=== PATIENT | male | born 2000 | race Two or more races ===

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

== ENCOUNTER 2018-04-30 09:26 | Inpatient (IN) | payer OTHER ==
[2018-04-30 10:12] LABS: HEMATOCRIT 43.6 % (42.0-52.0); HEMOGLOBIN 15.1 g/dl (13.5-17.5); MEAN CORPUSCULAR HEMOGLOBIN 29.7 pg (27.0-33.0); MEAN CORPUSCULAR HGB CONC 34.6 g/dl (32.0-36.5); MEAN CORPUSCULAR VOLUME 85.7 fl (80.0-96.0); PLATELET COUNT, AUTOMATED 275 10^3/uL (150-450); RED BLOOD COUNT 5.09 10^6/uL (4.30-6.10); RED CELL DISTRIBUTION WIDTH 12.5 % (11.5-14.5); WHITE BLOOD COUNT 7.8 10^3/uL (4.0-10.0)
[2018-04-30 10:46] LABS: ALBUMIN 4.5 GM/DL (3.2-5.2); ALBUMIN/GLOBULIN RATIO 1.41 (1.00-1.93); ALKALINE PHOSPHATASE 96 U/L (45-117); ALT/SGPT 42 U/L (12-78); ANION GAP 9 MEQ/L (8-16); AST/SGOT 23 U/L (7-37); BILIRUBIN,DIRECT 0.2 MG/DL (0.0-0.2); BILIRUBIN,TOTAL 0.8 MG/DL (0.2-1.0); BLOOD UREA NITROGEN 10 MG/DL (7-18); CALCIUM LEVEL 9.6 MG/DL (8.5-10.1); CARBON DIOXIDE LEVEL 26 MEQ/L (21-32); CHLORIDE LEVEL 109 MEQ/L (98-107); CREATININE FOR GFR 1.16 MG/DL (0.70-1.30); ETHYL ALCOHOL (ETHANOL) 0.003 % (0.000-0.010); GLUCOSE, FASTING 88 MG/DL (70-100); POTASSIUM SERUM 4.1 MEQ/L (3.5-5.1); SALICYLATE LEVEL < 1.7 MG/DL (5.0-30.0); SODIUM LEVEL 144 MEQ/L (136-145); THYROID STIMULATING HORMONE 0.643 uIU/ML (0.463-3.98); TOTAL PROTEIN 7.7 GM/DL (6.4-8.2)
[2018-04-30 10:47] LABS: ACETAMINOPHEN LEVEL < 2.0 UG/ML (10.0-30.0)
[2018-04-30 10:50] LABS: AMPHETAMINES LEVEL URINE POSITIVE (NEGATIVE); BARBITURATES URINE NEGATIVE (NEGATIVE); BENZODIAZEPINES URINE NEGATIVE (NEGATIVE); CANNABINOIDS URINE NEGATIVE (NEGATIVE); COCAINE METABOLITE URINE NEGATIVE (NEGATIVE); METHADONE URINE NEGATIVE (NEGATIVE); OPIATES URINE NEGATIVE (NEGATIVE); PHENCYCLIDINE URINE NEGATIVE (NEGATIVE)
[2018-04-30] MEDS ORDERED: MOM 30ML SUSPENSION UDC PO (15:00)
[2018-04-30] MEDS ORDERED: MAALOX 30 ML SUSP *UDC PO (15:00)
[2018-05-01] MEDS: ACETAMINOPHEN TAB 650MG DOSE (2X325MG) PO (08:31)
[2018-05-01] MEDS: SERTRALINE HCL 50 MG TAB PO (14:58)
[2018-05-01] MEDS: guanFACINE 1 MG TAB PO (21:02)
[2018-05-02] MEDS: SERTRALINE HCL 50 MG TAB PO (08:00)
[2018-05-02] MEDS: traZODone 50 MG TAB PO (20:59)
[2018-05-02] MEDS: guanFACINE 1 MG TAB PO (20:59)
[2018-05-03] MEDS: SERTRALINE HCL 50 MG TAB PO (08:12)
== END 2018-05-03 14:00 | disposition home or self-care (01) | DRG 881 ==
LOC: M ED 09:26 → M PSY 14:47
DX: F32.9 Major depressive disorder, single episode, unspecified (principal); F90.9 Attention-deficit hyperactivity disorder, unspecified type; F84.5 Asperger's syndrome; Z81.1 Family history of alcohol abuse and dependence; Z81.8 Family history of other mental and behavioral disorders; Z79.899 Other long term (current) drug therapy; Z88.0 Allergy status to penicillin

== ENCOUNTER → 2018-07-15 | Outpatient (CLI) | payer OTHER ==
[2018-07-15 19:42] LABS: CHLAMYDIA DNA AMPLIFICATION NEGATIVE (NEGATIVE); GC DNA AMPLIFICATION NEGATIVE (NEGATIVE)
[2018-07-17 08:11] LABS: HEPATITIS B SURFACE ANTIGEN NEGATIVE (NEGATIVE); HIV 1&2 SCREEN CENTAUR NEGATIVE (NEGATIVE)
[2018-07-17 08:11] LABS: HEPATITIS C VIRUS ABY INDEX 0.1 INDEX (<0.8)
== END ==
LOC: M WUC 11:39
DX: Z72.51 High risk heterosexual behavior (principal)
CPT/HCPCS: 87340

== ENCOUNTER → 2018-08-05 | Outpatient (REF) | payer OTHER | LOC: M LAB REF 09:08 | DX: Z30.2 Encounter for sterilization (principal) ==

== ENCOUNTER 2018-11-01 11:00 | Inpatient (IN) | payer OTHER, MEDICAID ==
[~2018-11-01] VITALS: Ht 177.8 cm; Wt 75.1 kg
[~2018-11-01 11:00] MED LIST: BENZ-52 PO; GUAN1TA PO; LATU1TAB PO; OXCA300T14 PO; REXU1TAB4 PO; SERT50TA PO; TRAZO50TA PO; VITMTA PO; VYVA30CA4 PO
[2018-11-01] MEDS ORDERED: HYDR-3363 PO (11:21)
[2018-11-01] MEDS ORDERED: QUET5TAB PO (11:21)
[2018-11-01 11:51] LABS: HEMATOCRIT 47.2 % (42.0-52.0); HEMOGLOBIN 16.3 g/dl (13.5-17.5); MEAN CORPUSCULAR HEMOGLOBIN 29.7 pg (27.0-33.0); MEAN CORPUSCULAR HGB CONC 34.5 g/dl (32.0-36.5); PLATELET COUNT, AUTOMATED 237 10^3/uL (150-450); RED BLOOD COUNT 5.49 10^6/uL (4.30-6.10); WHITE BLOOD COUNT 6.1 10^3/uL (4.0-10.0)
[2018-11-01 12:52] LABS: ACETAMINOPHEN LEVEL < 2.0 UG/ML (10.0-30.0); ALBUMIN 4.7 GM/DL (3.2-5.2); ALT/SGPT 35 U/L (12-78); BILIRUBIN,DIRECT 0.3 MG/DL (0.0-0.2); BILIRUBIN,TOTAL 1.1 MG/DL (0.2-1.0); BLOOD UREA NITROGEN 18 MG/DL (7-18); CALCIUM LEVEL 9.1 MG/DL (8.5-10.1); CARBON DIOXIDE LEVEL 26 MEQ/L (21-32); CHLORIDE LEVEL 107 MEQ/L (98-107); CREATININE FOR GFR 1.01 MG/DL (0.70-1.30); ETHYL ALCOHOL (ETHANOL) < 0.003 % (0.000-0.010); GLUCOSE, FASTING 72 MG/DL (70-100); POTASSIUM SERUM 3.9 MEQ/L (3.5-5.1); SALICYLATE LEVEL < 1.7 MG/DL (5.0-30.0); SODIUM LEVEL 141 MEQ/L (136-145)
[2018-11-01 14:01] LABS: AMPHETAMINES LEVEL URINE NEGATIVE (NEGATIVE); BARBITURATES URINE NEGATIVE (NEGATIVE); BENZODIAZEPINES URINE NEGATIVE (NEGATIVE); CANNABINOIDS URINE NEGATIVE (NEGATIVE); COCAINE METABOLITE URINE NEGATIVE (NEGATIVE); METHADONE URINE NEGATIVE (NEGATIVE); OPIATES URINE NEGATIVE (NEGATIVE); PHENCYCLIDINE URINE NEGATIVE (NEGATIVE)
[2018-11-01] MEDS ORDERED: ACETAMINOPHEN TAB 650MG DOSE (2X325MG) PO PRN (15:15)
[2018-11-01] MEDS ORDERED: MOM 30ML SUSPENSION UDC PO PRN (15:15)
[2018-11-01] MEDS ORDERED: MAALOX 30 ML SUSP *UDC PO PRN (15:15)
[2018-11-01] MEDS ORDERED: LORazepam 1 MG TAB PO ONE (16:00)
[2018-11-01] MEDS ORDERED: LORazepam 2 MG/ML VIAL (J2060) As Ordered ONE (16:04)
[2018-11-01] MEDS ORDERED: HALOPERIDOL 5 MG/ML VIAL (J1630) As Ordered ONE (16:04)
[2018-11-01] MEDS ORDERED: HALOPERIDOL 5 MG/ML VIAL (J1630) IM ONE (16:15)
[2018-11-01] MEDS ORDERED: LORazepam 2 MG/ML VIAL (J2060) IM ONE (16:15)
[2018-11-01] MEDS ORDERED: ZOLO50TA PO (16:49)
[2018-11-01] MEDS ORDERED: TRAZ-160 PO (16:49)
[2018-11-01 18:55] VITALS: BP 135/84
[2018-11-02 06:19] VITALS: BP 138/92
[2018-11-02] MEDS ORDERED: BENZTROPINE 2 MG TAB PO ONE (08:00)
[2018-11-02] MEDS: BENZTROPINE 1 MG TAB PO SCH ×2 (09:00→21:20)
[2018-11-02] MEDS: LORazepam 2 MG TAB PO PRN (09:22)
[2018-11-02] MEDS: hydrOXYzine 25 MG TAB PO PRN ×2 (09:22→19:03)
[2018-11-02 18:40] VITALS: BP 131/83
[2018-11-02] MEDS ORDERED: QUEtiapine FUMARATE 100 MG TAB PO SCH (21:00)
[2018-11-03 06:16] VITALS: BP 139/89
[2018-11-03] MEDS: BENZTROPINE 1 MG TAB PO SCH ×2 (08:18→20:07)
[2018-11-03] MEDS: SALIVA SUBSTITUTE(MOUTHKOTE) BTL MT PRN ×2 (15:19→17:04)
[2018-11-03] MEDS: hydrOXYzine 25 MG TAB PO PRN ×2 (15:19→23:54)
[2018-11-03 18:00] VITALS: BP 139/85
[2018-11-03] MEDS: LORazepam 2 MG TAB PO PRN (20:07)
[2018-11-03] MEDS ORDERED: QUEtiapine FUMARATE 50 MG TAB PO SCH (21:00)
[2018-11-03] MEDS: traZODone 50 MG TAB PO PRN (23:54)
[2018-11-04] MEDS: SALIVA SUBSTITUTE(MOUTHKOTE) BTL MT PRN (04:05)
[2018-11-04] MEDS: LORazepam 2 MG TAB PO PRN (06:05)
[2018-11-04 06:24] VITALS: BP 138/98
--- NOTE | 2018-11-04 08:20 | HPE ---
DATE OF ADMISSION: 11/01/2018 HISTORY OF PRESENT ILLNESS: Please refer to the psychiatric history and evaluation for further details on this admission. This examination and history is intended for medical issues which may need treatment, followup or consultation on this 18-year-old male. PRIMARY CARE PROVIDER: Dr. Demetris Alcantara. ALLERGIES: PENICILLIN. SOCIAL HISTORY: He is single. ETOH - He has not drank since June of 2018. He does not smoke. He does not use recreational drugs. PAST MEDICAL HISTORY: Attention deficit hyperactivity disorder. PAST SURGICAL HISTORY: Vasectomy, May of 2018. HOME MEDICATIONS: - hydroxyzine 50 mg two tablets by mouth daily - Seroquel 50 mg two by mouth nightly - sertraline 50 mg by mouth nightly - trazodone 50 mg by mouth nightly as needed insomnia LABORATORY STUDIES: CBC was normal. Electrolytes were normal. BUN was 18, creatinine 1.01. Total bilirubin 1.1. Direct bilirubin normal at 0.3., TSH 0.59. Urine for toxicology was negative. FAMILY HISTORY: Noncontributory. REVIEW OF SYSTEMS: 10-systems review was done and was unremarkable. Patient had no complaints. PHYSICAL EXAMINATION: 18-year-old cooperative male in no distress. Height 70 inches, weight 75.8 kg, body mass index (BMI) 24.3. The patient is alert and oriented times three. Pupils equal and reactive to light. Extraocular movements intact. Cornea and sclera clear. Conjunctiva normal. No facial asymmetry. Pharynx, tongue, and gums pink and moist. Tongue is midline. Neck is supple, without lymphadenopathy. No thyromegaly. No goiter. Carotids 2+ without bruit. Chest clear to auscultation, without wheeze or retraction. Heart is regular. Abdomen benign. Bowel sounds positive. /Rectal: Not done. Extremities show equal strength. Full range of motion. no cyanosis, clubbing or edema. Peripheral pulses equal and palpable bilaterally. Skin is warm and dry. IMPRESSION AND PLAN: 1. Psychiatric: Plan per psychiatry. 2. No acute medical issues.
[2018-11-04] MEDS: BENZTROPINE 1 MG TAB PO SCH ×2 (09:38→20:13)
--- NOTE | 2018-11-04 09:58 | MHIPN ---
DATE OF SERVICE: 11/03/2018 The patient today is doing a lot better than yesterday. I did decide to place the patient on one-to-one observation level because I felt that the patient's impulsive type history and made a suicidal gesture in the past of attempting to hang himself and he was so psychotic and manic. Today he states that he did sleep better last night, although not to baseline. He says that his thinking has slowed down also. He is not screaming like he was yesterday. He is denying any hallucinations and it is not clear if he is just downplaying his symptoms or not. I asked him about having told his father that his grandfather was talking to him and he tells me today that it was more own thinking. He is denying any suicidal thoughts or any homicidal thoughts today either. MENTAL STATUS EXAMINATION: The patient is alert and oriented times three. Eye contact is fair. Psychomotor activity is increased, he tends to be pacing a little bit in the room, but not as bad as yesterday. As I said, he is not yelling. He is verbally spontaneous. There is no formal thought disorder noted. He admits that his mood is depressed. His affect is appropriate to his mood. He is not suicidal or homicidal, not clear whether his delusions or hallucinations have resolved or whether as he said it was more his own thinking. Concentration is fair. Memory is grossly intact. Insight and judgment is poor. DIAGNOSIS: Bipolar disorder, type 1, manic with psychotic symptoms. Autism spectrum disorder. TREATMENT PLAN: We will continue to monitor the patient for manic like symptoms and psychotic symptoms and his depression. We will further increase the Seroquel to 150 mg at bedtime. The patient did sleep better last night but he woke up in the middle of the night and he requested more medicine and was given some Ativan and trazodone at that point. We will continue to titrate his medication as indicated. Also, I did start him on Cogentin and he is complaining of some dry mouth. This is because he had tongue swelling secondary to dystonic reaction due to the Haldol he was given in the emergency room. He probably may not need that Cogentin after a few days as he has not required any further Haldol. MTDD
--- NOTE | 2018-11-04 10:13 | MHHPE ---
DATE OF ADMISSION: 11/01/2018 DATE OF EVALUATION: 11/02/2018 HISTORY OF PRESENT ILLNESS: This is a 18-year-old white male who was brought to the emergency room by his father at the suggestion of the patient's therapist Lalit Saldivar from [facility]. Apparently the patient had been exhibiting manic like symptoms and had stated having thoughts of pushing someone would kill him and complained of lack of sleep and of hallucinations. The patient admitted he had been feeling depressed and anxious and having difficulty thinking clearly when he was in the emergency room. He stated that he had not been sleeping well for a few days. I asked if he was suicidal and wanting to harm himself and he stated that he wished someone would do it for him. He did not answer when he was asked if he had thoughts of harming others but the dad stated the patient, "only if I am provoked". The patient apparently had been staying at his mothers house for a few days. He was taking trazodone and it seemed that this was having an opposite effect. The patient's father stated that he had been yelling in his room for hours and saying that his grandfather who was was telling him what medications to take or not to take, what he should do. The patient apparently had been prescribed Seroquel 50 mg and Hydroxyzine by [facility]. It seemed that after he took the medications the day before he had been able to sleep somewhat. The dad stated that the night before the patient was in the bathroom cutting his hair and attempting to color it with honey and charcoal toothpaste. While in the emergency room the patient became very agitated and he had to be given medication and restraint. The patient today had been pretty agitated with disorganized thoughts. At times he was yelling at staff. He then complained of having some swelling of the tongue and he was given Cogentin 2 mg and this appeared that he had been given some Haldol in the emergency room and this was probably a reaction from the Haldol. He was also given some Ativan as needed and the patient finally feel asleep and at that point was when I went to see the patient. I did not feel that it was appropriate to awaken the patient at that point because he had been so agitated and had just fallen asleep. Therefore most of the information is from the chart. PAST PSYCHIATRIC HISTORY: I did review records from his past psychiatric hospitalization at [facility] on 04/30/2018 to 05/03/2018, at that time he apparently had intentions of hanging himself with one his ties attached to his bed. Again he was brought by the father who found him trying to hang himself. He admitted to feeling depressed and being suicidal. He seemed to be very focused on the fact that he wanted to have a relationship with a woman. The patient was not felt to be having any paranoid thinking or any psychotic thoughts. He was given the diagnosis of unspecified depression and autism spectrum disorder (Asperger's Syndrome) and he was discharged on Zoloft 50 mg daily, guanfacine 1 mg at bedtime and trazodone 50 mg at bedtime as needed for insomnia. At the time of that admission though the patient apparently was being treated with Latuda and according to that record it stated that the patient has been treated with multiple other medications including Vyvanse, Rexulti, Cogentin, Topamax and Latuda. This patient has a history of being diagnosed with autism spectrum disorders (Asperger's Syndrome). The patient at this hospitalization was age the age of 15. I was able to review a consult that was done by Dr. Willams while the patient was in the emergency room prior to be transferred to psychiatric unit. Consult was done on 12/18/2015. The patient indicated that he had been having a lot of trouble with depression and feeling hopeless and was having suicidal thoughts. The patient also admitted that he had been hearing voices and described them as "male and female" and that they were voices with whom he is familiar including teachers. The voices comment and sometimes converse with each other or give him advice. The patient stated that sometimes the voices would tell him to hurt himself. He also said he was having thoughts that the voices were talking negatively about him. Before he had that hospitalization at [facility] and he had another hospitalization at [facility] in April 2018 as noted above and this would be his 3rd admission. MEDICAL HISTORY: There are no acute medical problems with the patient according to chart. FAMILY HISTORY: There is a paternal grandmother who is schizophrenic, a maternal aunt that was bipolar, mom had a history of depression. There are no suicides in the family. SUBSTANCE ABUSE HISTORY: According to records,the patient does not have any problems with alcohol or drugs. Just to clarify orders information is obtained from the chart. REVIEW OF SYSTEMS: VITAL SIGNS: Blood pressure 138/92, pulse 116, respirations 18. APPEARANCE: The patient gets quite agitated but has fallen asleep where he as needed Ativan. MUSCULAR SYSTEM: Unable to observe his gait or check for any involuntary movements. I am unable to check other systems with this patient. MENTAL STATUS EXAMINATION: Not able to do the mental status exam since the patient fell asleep after given as needed Ativan due to agitation. DIAGNOSIS: Other specified bipolar disorder and autism spectrum disorder. Rule out Bipolar disorder, type I, manic with possible psychotic symptoms. TREATMENT PLAN: At this point I decided to place him on 1 to 1 observation level since patient does have a history of impulsive behavior where he tried to hang himself. Apparently he appears to be manic and psychotic and expressed suicidal ideations upon admission. I felt that it was safer to put him on 1 to 1 observation level for suicidal risk. I will continue the Seroquel he was just started on. I am going to increase it from 50 to 100 mg at bedtime. The patient appears to have a reaction to the Haldol as needed that he was given in the emergency room in addition to 2 mg that he was given. I will put him on Cogentin 1 mg. He will continue to adjust medications as indicated and continue 1 to 1 at this point. MTDD
--- NOTE | 2018-11-04 11:27 | MHIPNPDOC ---
[facility] Progress Note Progress Note DATE OF SERVICE: 11/04/18 HISTORY: Per Dr. Willis admit note: This is a 18-year-old white male who was brought to the emergency room by his father at the suggestion of the patient's therapist Lalit Saldivar from [facility]. Apparently the patient had been exhibiting manic like symptoms and had stated having thoughts of pushing someone would kill him and complained of lack of sleep and of hallucinations. The patient admitted he had been feeling depressed and anxious and having difficulty thinking clearly when he was in the emergency room. He stated that he had not been sleeping well for a few days. I asked if he was suicidal and wanting to harm himself and he stated that he wished someone would do it for him. He did not answer when he was asked if he had thoughts of harming others but the dad stated the patient, "only if I am provoked". The patient apparently had been staying at his mothers house for a few days. He was taking trazodone and it seemed that this was having an opposite effect. The patient's father stated that he had been yelling in his room for hours and saying that his grandfather who was was telling him what medications to take or not to take, what he should do. The patient apparently had been prescribed Seroquel 50 mg and Hydroxyzine by [facility]. It seemed that after he took the medications the day before he had been able to sleep somewhat. The dad stated that the night before the patient was in the bathroom cutting his hair and attempting to color it with honey and charcoal toothpaste. While in the emergency room the patient became very agitated and he had to be given medication and restraint. The patient today had been pretty agitated with disorganized thoughts. At times he was yelling at staff. He then complained of having some swelling of the tongue and he was given Cogentin 2 mg and this appeared that he had been given some Haldol in the emergency room and this was probably a reaction from the Haldol. He was also given some Ativan as needed and the patient finally feel asleep and at that point was when I went to see the patient. I did not feel that it was appropriate to awaken the patient at that point because he had been so agitated and had just fallen asleep. Therefore most of the information is from the chart. VITAL SIGNS: See below. NEW TEST RESULTS: See below. CURRENT MEDICATIONS: See below. MENTAL STATUS EXAMINATION: The patient is alert and oriented times three. Eye contact is fair. Activity is increased, but able to sit during interview although slightly r estless/anxious. He is verbally spontaneous but hyperverbal and tangential (speaking non-stop about TLS, living with his roommate, and a mark in a upstairs appt that he asked to quiet down b/c his mother couldn't sleep prior admission). There is no formal thought disorder noted. He admits that his mood is "manic and down at the same time". His affect is mixed hypomanic and anxio us. He is not suicidal or homicidal, not clear whether his delusions or hallucinations have resolved or whether as he said it was more his own thinking. Concentration is poor. Memory is grossly intact. Insight and judgment is poor. DIAGNOSES: Bipolar disorder, type 1, manic with psychotic symptoms. Autism spectrum disorder. ASSESSMENT:Pt seen with staff and continues to be hypomanic, anxious, tangential, with rapid/pressured speech, unclear whether he is responding to in ternal stimuli or experiencing psychosis/delusional thought disorder due to his current status. Pt not sleeping at night and restless. Is more redirectable and appears able to come off 1:1 sitting. States he feels "manic and down at the same time" and that "my serotonin levels are too high." Denies SI/HI. Agreeable to depakote for mood stabilization. MANAGEMENT PLAN: add zyprexa 10mg q4hr prn bj/agitation and depakote er 500mg bid Cogentin 1 mg BID Atarax 25 mg Q4HP PRN PO ANXIETY/AGITATION Ativan 2 mg Q4HP PRN PO ANXIETY/AGITATION SEROquel 200 mg QHS Trazodone 50 mg QHSP PRN PO INSOMNIA depakote er 500mg bid zyprexa 10mg q4hr prn bj/agitation TIME SPENT:30 minutes. Vital Signs Vital Signs Date Time Temp Pulse Resp B/P (MAP) Pulse Ox O2 Delivery O2 Flow Rate FiO2 11/04/18 06:24 98.5 119 20 138/98 (111) 11/01/18 18:36 98 11/01/18 16:45 Room Air Current Medications Current Medications Acetaminophen (Tylenol Tab) 650 mg Q6HP PRN PO HEADACHE or DISCOMFORT; Start 11/01/18 at 15:15 Al Hydrox/Mg Hydrox/Simethicone (Mylanta) 30 ml Q4HP PRN PO HEARTBURN/INDIGESTION; Start 11/01/18 at 15:15 Benztropine Mesylate (Cogentin) 1 mg BID PO Last administered on 11/04/18at 09:38; Start 11/02/18 at 09:00 Home Med (Med Rec Complete!) ASDIRECTED XX ; Start 11/01/18 at 17:00; Stop 11/01/18 at 17:00; Status DC Hydroxyzine HCl (Atarax) 25 mg Q4HP PRN PO ANXIETY/AGITATION Last administered on 11/03/18at 23:54; Start 11/02/18 at 07:45 Lorazepam (Ativan) 2 mg Q4HP PRN PO ANXIETY/AGITATION Last administered on 11/04/18at 06:05; Start 11/02/18 at 07:45 Magnesium Hydroxide (Milk Of Magnesia) 30 ml DAILYPRN PRN PO CONSTIPATION; Start 11/01/18 at 15:15 Quetiapine Fumarate (SEROquel) 100 mg QHS PO Last administered on 11/02/18at 21:20; Start 11/02/18 at 21:00; Stop 11/03/18 at 11:47; Status DC Quetiapine Fumarate (SEROquel) 150 mg QHS PO Last administered on 11/03/18at 20:07; Start 11/03/18 at 21:00 Saliva Substitute (Mouthkote) SPRAY NEEDED Q1HP PRN MT ORAL PAIN/DISCOMFORT Last administered on 11/04/18at 04:05; Start 11/03/18 at 12:00 Trazodone HCl (Desyrel) 50 mg QHSP PRN PO INSOMNIA Last administered on 11/03/18 23:54; Start 11/01/18 at 15:15 Allergies Coded Allergies: Penicillins (Verified Allergy, Unknown, 04/30/18) HINA GARCIA DO Nov 04, 2018 11:27 am
[2018-11-04] MEDS ORDERED: OLANZapine ORAL DISINTEGRATING TAB 5MG PO PRN (11:30)
[2018-11-04] MEDS ORDERED: DIVALPROEX 500MG *ER* TAB PO ONE (11:30)
[2018-11-04 18:00] VITALS: BP 143/85
[2018-11-04] MEDS: DIVALPROEX 500MG *ER* TAB PO SCH (20:14)
[2018-11-04] MEDS: QUEtiapine FUMARATE 200 MG TAB PO SCH (20:14)
[2018-11-05 06:47] VITALS: BP 143/87
[2018-11-05] MEDS: DIVALPROEX 500MG *ER* TAB PO SCH ×2 (09:37→20:52)
[2018-11-05] MEDS: BENZTROPINE 1 MG TAB PO SCH ×2 (09:37→20:52)
--- NOTE | 2018-11-05 09:38 | MHIPNPDOC ---
[facility] Progress Note Progress Note DATE OF SERVICE: 11/05/18 HISTORY: Per Dr. Willis admit note: This is a 18-year-old white male who was brought to the emergency room by his father at the suggestion of the patient's therapist Lalit Saldivar from [facility]. Apparently the patient had been exhibiting manic like symptoms and had stated having thoughts of pushing someone would kill him and complained of lack of sleep and of hallucinations. The patient admitted he had been feeling depressed and anxious and having difficulty thinking clearly when he was in the emergency room. He stated that he had not been sleeping well for a few days. I asked if he was suicidal and wanting to harm himself and he stated that he wished someone would do it for him. He did not answer when he was asked if he had thoughts of harming others but the dad stated the patient, "only if I am provoked". The patient apparently had been staying at his mothers house for a few days. He was taking trazodone and it seemed that this was having an opposite effect. The patient's father stated that he had been yelling in his room for hours and saying that his grandfather who was was telling him what medications to take or not to take, what he should do. The patient apparently had been prescribed Seroquel 50 mg and Hydroxyzine by [facility]. It seemed that after he took the medications the day before he had been able to sleep somewhat. The dad stated that the night before the patient was in the bathroom cutting his hair and attempting to color it with honey and charcoal toothpaste. While in the emergency room the patient became very agitated and he had to be given medication and restraint. The patient today had been pretty agitated with disorganized thoughts. At times he was yelling at staff. He then complained of having some swelling of the tongue and he was given Cogentin 2 mg and this appeared that he had been given some Haldol in the emergency room and this was probably a reaction from the Haldol. He was also given some Ativan as needed and the patient finally feel asleep and at that point was when I went to see the patient. I did not feel that it was appropriate to awaken the patient at that point because he had been so agitated and had just fallen asleep. Therefore most of the information is from the chart. VITAL SIGNS: See below. NEW TEST RESULTS: See below. CURRENT MEDICATIONS: See below. MENTAL STATUS EXAMINATION: The patient is alert and oriented times three. Eye contact is intermittent, Activity is less increased, but able to sit during interview although slightly restless/anxious. He is verbally spontaneous but hyperverbal although less and tangential at times. States his "subconscious is speaking to me and saying things that I can't understand." Mumbling to himself responding to internal stimuli in my office when he stops talk out loud. Endorses confusion over people's faces thinking he recognizes them from an actor on TV but not quite sure if it's the actor. He admits that his mood is "better". His affect is mixed hypomanic and anxious. He is not suicidal or homicidal. Concentration is poor. Memory is grossly intact. Insight and judgment is poor. DIAGNOSES: Bipolar disorder, type 1, manic with psychotic symptoms. Autism spectrum disorder. ASSESSMENT:Pt seen and continues to be hypomanic, anxious, tangential, with rapid/pressured speech, responding to internal stimuli, endorsing AH as his "subconscious," per staff talking to a closest this am, and appears to be experiencing psychosis/delusional thought disorder due to his current status. Pt is sleeping at night and with start of current meds and depakote for mood stabilization. Is more redirectable although very interruptive when someone is talking to him and continues to be hyperverbal. Delusional belief that his symptoms are caused by too much "artificial sugar". States he feels "better." Denies SI/HI. MANAGEMENT PLAN: add zyprexa 10mg q4hr prn bj/agitation and depakote er 500mg bid. add invega 3mg bid for psychosis Cogentin 1 mg BID invega 3mg bid for psychosis Atarax 25 mg Q4HP PRN PO ANXIETY/AGITATION Ativan 2 mg Q4HP PRN PO ANXIETY/AGITATION SEROquel 200 mg QHS Trazodone 50 mg QHSP PRN PO INSOMNIA depakote er 500mg bid zyprexa 10mg q4hr prn bj/agitation TIME SPENT:30 minutes. Vital Signs Vital Signs Date Time Temp Pulse Resp B/P (MAP) Pulse Ox O2 Delivery O2 Flow Rate FiO2 11/05/18 06:47 99.1 104 16 143/87 (105) 11/01/18 18:36 98 11/01/18 16:45 Room Air Current Medications Current Medications Acetaminophen (Tylenol Tab) 650 mg Q6HP PRN PO HEADACHE or DISCOMFORT Last administered on 11/05/18at 01:37; Start 11/01/18 at 15:15 Al Hydrox/Mg Hydrox/Simethicone (Mylanta) 30 ml Q4HP PRN PO HEARTBURN/INDIGESTION; Start 11/01/18 at 15:15 Benztropine Mesylate (Cogentin) 1 mg BID PO Last administered on 11/04/18at 20:13; Start 11/02/18 at 09:00 Divalproex Sodium (Depakote Er) 500 mg BID PO ; Start 11/04/18 at 21:00 Home Med (Med Rec Complete!) ASDIRECTED XX ; Start 11/01/18 at 17:00; Stop 11/01/18 at 17:00; Status DC Hydroxyzine HCl (Atarax) 25 mg Q4HP PRN PO ANXIETY/AGITATION Last administered on 11/03/18at 23:54; Start 11/02/18 at 07:45 Lorazepam (Ativan) 2 mg Q4HP PRN PO ANXIETY/AGITATION Last administered on 11/04/18at 06:05; Start 11/02/18 at 07:45 Magnesium Hydroxide (Milk Of Magnesia) 30 ml DAILYPRN PRN PO CONSTIPATION; Start 11/01/18 at 15:15 Olanzapine (ZyPREXA ZYDIS) 10 mg Q4HP PRN PO ANXIETY/AGITATION; Start 11/04/18 at 11:30 Quetiapine Fumarate (SEROquel) 100 mg QHS PO Last administered on 11/02/18at 21:20; Start 11/02/18 at 21:00; Stop 11/03/18 at 11:47; Status DC Quetiapine Fumarate (SEROquel) 150 mg QHS PO Last administered on 11/03/18at 20:07; Start 11/03/18 at 21:00; Stop 11/04/18 at 11:27; Status DC Quetiapine Fumarate (SEROquel) 200 mg QHS PO Last administered on 11/04/18at 20:14; Start 11/04/18 at 21:00 Saliva Substitute (Mouthkote) SPRAY NEEDED Q1HP PRN MT ORAL PAIN/DISCOMFORT Last administered on 11/04/18at 04:05; Start 11/03/18 at 12:00 Trazodone HCl (Desyrel) 50 mg QHSP PRN PO INSOMNIA Last administered on 11/03/18at 23:54; Start 11/01/18 at 15:15 Allergies Coded Allergies: Penicillins (Verified Allergy, Unknown, 04/30/18) HINA GARCIA DO Nov 05, 2018 9:38 am
[2018-11-05] MEDS: PALIPERIDONE 3 MG ER TAB (INVEGA) PO SCH ×2 (11:22→20:52)
[2018-11-05 18:00] VITALS: BP 130/78
[2018-11-05] MEDS: QUEtiapine FUMARATE 200 MG TAB PO SCH (20:52)
[2018-11-06 06:39] VITALS: BP 130/75
[2018-11-06] MEDS: PALIPERIDONE 3 MG ER TAB (INVEGA) PO SCH ×2 (09:43→21:43)
[2018-11-06] MEDS: DIVALPROEX 500MG *ER* TAB PO SCH ×2 (09:43→21:42)
[2018-11-06] MEDS: BENZTROPINE 1 MG TAB PO SCH ×2 (09:43→21:42)
--- NOTE | 2018-11-06 10:18 | MHIPNPDOC ---
[facility] Progress Note Progress Note DATE OF SERVICE: 11/06/18 HISTORY: Per Dr. Willis admit note: This is a 18-year-old white male who was brought to the emergency room by his father at the suggestion of the patient's therapist Lalit Saldivar from [facility]. Apparently the patient had been exhibiting manic like symptoms and had stated having thoughts of pushing someone would kill him and complained of lack of sleep and of hallucinations. The patient admitted he had been feeling depressed and anxious and having difficulty thinking clearly when he was in the emergency room. He stated that he had not been sleeping well for a few days. I asked if he was suicidal and wanting to harm himself and he stated that he wished someone would do it for him. He did not answer when he was asked if he had thoughts of harming others but the dad stated the patient, "only if I am provoked". The patient apparently had been staying at his mothers house for a few days. He was taking trazodone and it seemed that this was having an opposite effect. The patient's father stated that he had been yelling in his room for hours and saying that his grandfather who was was telling him what medications to take or not to take, what he should do. The patient apparently had been prescribed Seroquel 50 mg and Hydroxyzine by [facility]. It seemed that after he took the medications the day before he had been able to sleep somewhat. The dad stated that the night before the patient was in the bathroom cutting his hair and attempting to color it with honey and charcoal toothpaste. While in the emergency room the patient became very agitated and he had to be given medication and restraint. The patient today had been pretty agitated with disorganized thoughts. At times he was yelling at staff. He then complained of having some swelling of the tongue and he was given Cogentin 2 mg and this appeared that he had been given some Haldol in the emergency room and this was probably a reaction from the Haldol. He was also given some Ativan as needed and the patient finally feel asleep and at that point was when I went to see the patient. I did not feel that it was appropriate to awaken the patient at that point because he had been so agitated and had just fallen asleep. Therefore most of the information is from the chart. VITAL SIGNS: See below. NEW TEST RESULTS: See below. CURRENT MEDICATIONS: See below. MENTAL STATUS EXAMINATION: The patient is alert and oriented times three. Eye contact is intermittent, Activity is less increased, but able to sit during interview although slightly restless/anxious. He is verbally spontaneous and less hyperverbal and tangential. Continues to endorse his "subconscious" speaking to him although less. Less mumbling to himself responding to internal stimuli. Continues to endorse bizarre, concrete thoughts and delusions. He admits that his mood is "better". His affect is improved mixed hypomanic and anxious. He is not suicidal or homicidal. Concentration is poor. Memory is grossly intact. Insight and judgment is poor. DIAGNOSES: Bipolar disorder, type 1, manic with psychotic symptoms. Autism spectrum disorder. ASSESSMENT:Pt seen and appears less hypomanic, anxious, tangential, with rapid/pressured speech, responding to internal stimuli. States his "subc onscious" is speaking for him less. Endorses anxiety that is improved "when I put my glasses on b/c I feel like I'm looking at a sunset." Continues to have bizarre, concrete thoughts. He is compliant with his medications and states he thinks they're helpful. Pt is sleeping at night. Is more redirectable and less interruptive when someone is talking to him. He's less hyperverbal. continues to have bizarre delusions of "figuring out what's wrong with me" as today states he thinks he has seasonal affective disorder b/c bright light makes him anxious. Advised this is mostly likely due to him being autistic and more sensitive to environmental stimulation. Denies SI/HI. MANAGEMENT PLAN: add zyprexa 10mg q4hr prn bj/agitation and depakote er 500mg bid. Cogentin 1 mg BID invega 3mg bid for psychosis Atarax 25 mg Q4HP PRN PO ANXIETY/AGITATION Ativan 2 mg Q4HP PRN PO ANXIETY/AGITATION SEROquel 200 mg QHS Trazodone 50 mg QHSP PRN PO INSOMNIA depakote er 500mg bid zyprexa 10mg q4hr prn bj/agitation TIME SPENT:30 minutes. Vital Signs Vital Signs Date Time Temp Pulse Resp B/P (MAP) Pulse Ox O2 Delivery O2 Flow Rate FiO2 11/06/18 06:39 97.8 111 14 130/75 (93) 11/01/18 18:36 98 11/01/18 16:45 Room Air Current Medications Current Medications Acetaminophen (Tylenol Tab) 650 mg Q6HP PRN PO HEADACHE or DISCOMFORT Last administered on 11/05/18 01:37; Start 11/01/18 at 15:15 Al Hydrox/Mg Hydrox/Simethicone (Mylanta) 30 ml Q4HP PRN PO HEARTBURN/INDIGESTION; Start 11/01/18 at 15:15 Benztropine Mesylate (Cogentin) 1 mg BID PO Last administered on 11/06/18 09:43; Start 11/02/18 at 09:00 Divalproex Sodium (Depakote Er) 500 mg BID PO Last administered on 11/06/18 09:43; Start 11/04/18 at 21:00 Home Med (Med Rec Complete!) ASDIRECTED XX ; Start 11/01/18 at 17:00; Stop 11/01/18 at 17:00; Status DC Hydroxyzine HCl (Atarax) 25 mg Q4HP PRN PO ANXIETY/AGITATION Last administered on 11/03/18 23:54; Start 11/02/18 at 07:45 Lorazepam (Ativan) 2 mg Q4HP PRN PO ANXIETY/AGITATION Last administered on 11/04/18at 06:05; Start 11/02/18 at 07:45 Magnesium Hydroxide (Milk Of Magnesia) 30 ml DAILYPRN PRN PO CONSTIPATION; Start 11/01/18 at 15:15 Olanzapine (ZyPREXA ZYDIS) 10 mg Q4HP PRN PO ANXIETY/AGITATION; Start 11/04/18 at 11:30 Paliperidone (Invega) 3 mg QAM PO Last administered on 11/06/18 09:43; Start 11/05/18 at 09:00 Paliperidone (Invega) 3 mg QHS PO Last administered on 11/05/18 20:52; Start 11/05/18 at 21:00 Quetiapine Fumarate (SEROquel) 100 mg QHS PO Last administered on 11/02/18at 21:20; Start 11/02/18 at 21:00; Stop 11/03/18 at 11:47; Status DC Quetiapine Fumarate (SEROquel) 150 mg QHS PO Last administered on 11/03/18at 20:07; Start 11/03/18 at 21:00; Stop 11/04/18 at 11:27; Status DC Quetiapine Fumarate (SEROquel) 200 mg QHS PO Last administered on 11/05/18at 20:52; Start 11/04/18 at 21:00 Saliva Substitute (Mouthkote) SPRAY NEEDED Q1HP PRN MT ORAL PAIN/DISCOMFORT Last administered on 11/04/18at 04:05; Start 11/03/18 at 12:00 Trazodone HCl (Desyrel) 50 mg QHSP PRN PO INSOMNIA Last administered on 11/03/18at 23:54; Start 11/01/18 at 15:15 Allergies Coded Allergies: Penicillins (Verified Allergy, Unknown, 04/30/18) HINA GARCIA DO Nov 06, 2018 10:18 am
[2018-11-06] MEDS: LORazepam 2 MG TAB PO PRN ×2 (16:16→21:42)
[2018-11-06] MEDS: CEPACOL LOZENGE PO PRN ×2 (18:12→20:13)
[2018-11-06 18:19] VITALS: BP 157/83
[2018-11-06] MEDS: QUEtiapine FUMARATE 200 MG TAB PO SCH (21:42)
[2018-11-07 06:32] VITALS: BP 125/72
[2018-11-07] MEDS: BENZTROPINE 1 MG TAB PO SCH ×2 (08:42→20:11)
[2018-11-07] MEDS: DIVALPROEX 500MG *ER* TAB PO SCH ×2 (08:42→20:11)
[2018-11-07] MEDS: PALIPERIDONE 3 MG ER TAB (INVEGA) PO SCH ×2 (08:42→20:11)
[2018-11-07] MEDS: SALIVA SUBSTITUTE(MOUTHKOTE) BTL MT PRN ×2 (09:30→16:29)
--- NOTE | 2018-11-07 10:05 | MHIPNPDOC ---
[facility] Progress Note Progress Note DATE OF SERVICE: 11/07/18 HISTORY: Per Dr. Willis admit note: This is a 18-year-old white male who was brought to the emergency room by his father at the suggestion of the patient's therapist Lalit Saldivar from [facility]. Apparently the patient had been exhibiting manic like symptoms and had stated having thoughts of pushing someone would kill him and complained of lack of sleep and of hallucinations. The patient admitted he had been feeling depressed and anxious and having difficulty thinking clearly when he was in the emergency room. He stated that he had not been sleeping well for a few days. I asked if he was suicidal and wanting to harm himself and he stated that he wished someone would do it for him. He did not answer when he was asked if he had thoughts of harming others but the dad stated the patient, "only if I am provoked". The patient apparently had been staying at his mothers house for a few days. He was taking trazodone and it seemed that this was having an opposite effect. The patient's father stated that he had been yelling in his room for hours and saying that his grandfather who was was telling him what medications to take or not to take, what he should do. The patient apparently had been prescribed Seroquel 50 mg and Hydroxyzine by [facility]. It seemed that after he took the medications the day before he had been able to sleep somewhat. The dad stated that the night before the patient was in the bathroom cutting his hair and attempting to color it with honey and charcoal toothpaste. While in the emergency room the patient became very agitated and he had to be given medication and restraint. The patient today had been pretty agitated with disorganized thoughts. At times he was yelling at staff. He then complained of having some swelling of the tongue and he was given Cogentin 2 mg and this appeared that he had been given some Haldol in the emergency room and this was probably a reaction from the Haldol. He was also given some Ativan as needed and the patient finally feel asleep and at that point was when I went to see the patient. I did not feel that it was appropriate to awaken the patient at that point because he had been so agitated and had just fallen asleep. Therefore most of the information is from the chart. VITAL SIGNS: See below. NEW TEST RESULTS: See below. CURRENT MEDICATIONS: See below. MENTAL STATUS EXAMINATION: The patient is alert and oriented times three. Eye contact is intermittent, Activity is less increased, but able to sit during interview although slightly restless/anxious. He is verbally spontaneous and less hyperverbal and tangential. Continues to endorse his "subconscious" speaking to him although less. Less mumbling to himself responding to internal stimuli. Continues to endorse bizarre, concrete thoughts and delusions. He admits that his mood is "better". His affect is improved mixed hypomanic and anxious. He is not suicidal or homicidal. Concentration is poor. Memory is grossly intact. Insight and judgment is poor. DIAGNOSES: Bipolar disorder, type 1, manic with psychotic symptoms. Autism spectrum disorder. ASSESSMENT:Pt seen and appears more calm, with regular speech, slightly constricted affect likes he's tired but denies being tired stating he just feels overall relaxed and more like himself. Does endorse periods of internal hyperactivity either secondary to outside or inside stimuli. Per nursing, pt responding to internal stimuli less, talking to self less, and is less bizarre. States his "subconscious" is speaking for him less. Continues to have bizarre thoughts that are improving. Has very concrete thoughts. He is compliant with his medications and states he thinks they're helpful. Agreeable to invega sustenna. Pt is sleeping at night. Is more redirectable and less interruptive when someone is talking to him. Denies SI/HI. MANAGEMENT PLAN: continue plan. invega sustenna 234mg im today and 156mg im on Sunday Cogentin 1 mg BID invega 3mg bid for psychosis Atarax 25 mg Q4HP PRN PO ANXIETY/AGITATION Ativan 2 mg Q4HP PRN PO ANXIETY/AGITATION SEROquel 200 mg QHS Trazodone 50 mg QHSP PRN PO INSOMNIA depakote er 500mg bid zyprexa 10mg q4hr prn bj/agitation TIME SPENT:30 minutes. Vital Signs Vital Signs Date Time Temp Pulse Resp B/P (MAP) Pulse Ox O2 Delivery O2 Flow Rate FiO2 11/07/18 06:32 97.8 110 14 125/72 (89) 11/01/18 18:36 98 11/01/18 16:45 Room Air Current Medications Current Medications Acetaminophen (Tylenol Tab) 650 mg Q6HP PRN PO HEADACHE or DISCOMFORT Last administered on 11/05/18 01:37; Start 11/01/18 at 15:15 Al Hydrox/Mg Hydrox/Simethicone (Mylanta) 30 ml Q4HP PRN PO HEARTBURN/INDIGESTION; Start 11/01/18 at 15:15 Benztropine Mesylate (Cogentin) 1 mg BID PO Last administered on 11/07/18 08:42; Start 11/02/18 at 09:00 Cetylpyridinium Chloride (Cepacol) 1 rodolfo Q2HP PRN PO COUGH Last administered on 11/06/18 20:13; Start 11/06/18 at 18:00 Divalproex Sodium (Depakote Er) 500 mg BID PO Last administered on 11/07/18 08:42; Start 11/04/18 at 21:00 Home Med (Med Rec Complete!) ASDIRECTED XX ; Start 11/01/18 at 17:00; Stop 11/01/18 at 17:00; Status DC Hydroxyzine HCl (Atarax) 25 mg Q4HP PRN PO ANXIETY/AGITATION Last administered on 11/03/18 23:54; Start 11/02/18 at 07:45 Lorazepam (Ativan) 2 mg Q4HP PRN PO ANXIETY/AGITATION Last administered on 11/06/18 21:42; Start 11/02/18 at 07:45 Magnesium Hydroxide (Milk Of Magnesia) 30 ml DAILYPRN PRN PO CONSTIPATION; Start 11/01/18 at 15:15 Olanzapine (ZyPREXA ZYDIS) 10 mg Q4HP PRN PO ANXIETY/AGITATION; Start 11/04/18 at 11:30 Paliperidone (Invega) 3 mg QAM PO Last administered on 11/07/18 08:42; Start 11/05/18 at 09:00 Paliperidone (Invega) 3 mg QHS PO Last administered on 11/06/18 21:43; Start 11/05/18 at 21:00 Quetiapine Fumarate (SEROquel) 100 mg QHS PO Last administered on 11/02/18 21:20; Start 11/02/18 at 21:00; Stop 11/03/18 at 11:47; Status DC Quetiapine Fumarate (SEROquel) 150 mg QHS PO Last administered on 11/03/18at 20:07; Start 11/03/18 at 21:00; Stop 11/04/18 at 11:27; Status DC Quetiapine Fumarate (SEROquel) 200 mg QHS PO Last administered on 11/06/18at 21:42; Start 11/04/18 at 21:00 Saliva Substitute (Mouthkote) SPRAY NEEDED Q1HP PRN MT ORAL PAIN/DISCOMFORT Last administered on 11/07/18 09:30; Start 11/03/18 at 12:00 Trazodone HCl (Desyrel) 50 mg QHSP PRN PO INSOMNIA Last administered on 11/03/18at 23:54; Start 11/01/18 at 15:15 Allergies Coded Allergies: Penicillins (Verified Allergy, Unknown, 04/30/18) HINA GARCIA DO Nov 07, 2018 10:05 am
[2018-11-07] MEDS ORDERED: PALIPERIDONE PALMITATE 234 MG/1.5 ML INJ (INVEGA SUSTENNA)(J2426) IM ONE (12:00)
[2018-11-07 18:00] VITALS: BP 121/71
[2018-11-07] MEDS: QUEtiapine FUMARATE 200 MG TAB PO SCH (20:11)
[2018-11-07] MEDS: LORazepam 2 MG TAB PO PRN (20:11)
[2018-11-08 06:25] VITALS: BP 132/82
[2018-11-08] MEDS: BENZTROPINE 1 MG TAB PO SCH ×2 (08:47→22:00)
[2018-11-08] MEDS: DIVALPROEX 500MG *ER* TAB PO SCH ×2 (08:47→22:00)
[2018-11-08] MEDS: PALIPERIDONE 3 MG ER TAB (INVEGA) PO SCH ×2 (08:47→21:59)
--- NOTE | 2018-11-08 09:39 | MHIPNPDOC ---
[facility] Progress Note Progress Note DATE OF SERVICE: 11/08/18 HISTORY: Per Dr. Willis admit note: This is a 18-year-old white male who was brought to the emergency room by his father at the suggestion of the patient's therapist Lalit Saldivar from [facility]. Apparently the patient had been exhibiting manic like symptoms and had stated having thoughts of pushing someone would kill him and complained of lack of sleep and of hallucinations. The patient admitted he had been feeling depressed and anxious and having difficulty thinking clearly when he was in the emergency room. He stated that he had not been sleeping well for a few days. I asked if he was suicidal and wanting to harm himself and he stated that he wished someone would do it for him. He did not answer when he was asked if he had thoughts of harming others but the dad stated the patient, "only if I am provoked". The patient apparently had been staying at his mothers house for a few days. He was taking trazodone and it seemed that this was having an opposite effect. The patient's father stated that he had been yelling in his room for hours and saying that his grandfather who was was telling him what medications to take or not to take, what he should do. The patient apparently had been prescribed Seroquel 50 mg and Hydroxyzine by [facility]. It seemed that after he took the medications the day before he had been able to sleep somewhat. The dad stated that the night before the patient was in the bathroom cutting his hair and attempting to color it with honey and charcoal toothpaste. While in the emergency room the patient became very agitated and he had to be given medication and restraint. The patient today had been pretty agitated with disorganized thoughts. At times he was yelling at staff. He then complained of having some swelling of the tongue and he was given Cogentin 2 mg and this appeared that he had been given some Haldol in the emergency room and this was probably a reaction from the Haldol. He was also given some Ativan as needed and the patient finally feel asleep and at that point was when I went to see the patient. I did not feel that it was appropriate to awaken the patient at that point because he had been so agitated and had just fallen asleep. Therefore most of the information is from the chart. VITAL SIGNS: See below. NEW TEST RESULTS: See below. CURRENT MEDICATIONS: See below. MENTAL STATUS EXAMINATION: The patient is alert and oriented times three. Eye contact is intermittent, Activity is less increased, but able to sit during interview although slightly restless/anxious. He is verbally spontaneous and less hyperverbal and tangential. Continues to endorse his "subconscious" speaking to him although less. Less mumbling to himself responding to internal stimuli. Continues to endorse bizarre, concrete thoughts and delusions. He admits that his mood is "anxious" due to construction noise. His affect is improved mixed hypomanic. He is not suicidal or homicidal. Concentration is poor. Memory is grossly intact. Insight and judgment is poor. DIAGNOSES: Bipolar disorder, type 1, manic with psychotic symptoms. Autism spectrum disorder. ASSESSMENT:Pt seen and asking if I can stop the construction noise on the unit as it's making him irritable and anxious. Explained to pt that I cannot but encouraged him to practise coping skills and going to his room where it is quieter to aid and decrease noise which he states he'll try. Appears more calm, with regular speech, slightly constricted affect likes he's tired still. Continues to endorse periods of internal hyperactivity either secondary to outside (construction noise) or inside stimuli. Per nursing, pt responding to internal stimuli less, talking to self less, and is less bizarre. States his "subconscious" is speaking for him less. Continues to have bizarre thoughts that are improving. Has very concrete thoughts. He is compliant with his m edications and states he thinks they're helpful. Tolerated invega sustenna im yesterday. Pt is sleeping at night. Is more redirectable and less interruptive when someone is talking to him. Denies SI/HI. MANAGEMENT PLAN: continue plan. invega sustenna 234mg im today and 156mg im on Sunday Cogentin 1 mg BID invega 3mg bid for psychosis Atarax 25 mg Q4HP PRN PO ANXIETY/AGITATION Ativan 2 mg Q4HP PRN PO ANXIETY/AGITATION SEROquel 200 mg QHS Trazodone 50 mg QHSP PRN PO INSOMNIA depakote er 500mg bid zyprexa 10mg q4hr prn bj/agitation TIME SPENT:30 minutes. Vital Signs Vital Signs Date Time Temp Pulse Resp B/P (MAP) Pulse Ox O2 Delivery O2 Flow Rate FiO2 11/08/18 06:25 98.0 110 20 132/82 (99) Laboratory Data [facility] Laboratory Tests 2 11/07/18 10:25: Valproic Acid (Depakene) Level 85.2 Current Medications Current Medications Acetaminophen (Tylenol Tab) 650 mg Q6HP PRN PO HEADACHE or DISCOMFORT Last administered on 11/05/18at 01:37; Start 11/01/18 at 15:15 Al Hydrox/Mg Hydrox/Simethicone (Mylanta) 30 ml Q4HP PRN PO HEARTBURN/INDIGESTION; Start 11/01/18 at 15:15 Benztropine Mesylate (Cogentin) 1 mg BID PO Last administered on 11/08/18 08:47; Start 11/02/18 at 09:00 Cetylpyridinium Chloride (Cepacol) 1 rodolfo Q2HP PRN PO COUGH Last administered on 11/06/18at 20:13; Start 11/06/18 at 18:00 Divalproex Sodium (Depakote Er) 500 mg BID PO Last administered on 11/08/18at 08:47; Start 11/04/18 at 21:00 Home Med (Med Rec Complete!) ASDIRECTED XX ; Start 11/01/18 at 17:00; Stop 11/01/18 at 17:00; Status DC Hydroxyzine HCl (Atarax) 25 mg Q4HP PRN PO ANXIETY/AGITATION Last administered on 11/03/18at 23:54; Start 11/02/18 at 07:45 Lorazepam (Ativan) 2 mg Q4HP PRN PO ANXIETY/AGITATION Last administered on 11/07/18at 20:11; Start 11/02/18 at 07:45 Magnesium Hydroxide (Milk Of Magnesia) 30 ml DAILYPRN PRN PO CONSTIPATION; Sta rt 11/01/18 at 15:15 Olanzapine (ZyPREXA ZYDIS) 10 mg Q4HP PRN PO ANXIETY/AGITATION; Start 11/04/18 at 11:30 Paliperidone (Invega) 3 mg QAM PO Last administered on 11/08/18at 08:47; Start 11/05/18 at 09:00 Paliperidone (Invega) 3 mg QHS PO Last administered on 11/07/18 20:11; Start 11/05/18 at 21:00 Quetiapine Fumarate (SEROquel) 100 mg QHS PO Last administered on 11/02/18 21 :20; Start 11/02/18 at 21:00; Stop 11/03/18 at 11:47; Status DC Quetiapine Fumarate (SEROquel) 150 mg QHS PO Last administered on 11/03/18 20:07; Start 11/03/18 at 21:00; Stop 11/04/18 at 11:27; Status DC Quetiapine Fumarate (SEROquel) 200 mg QHS PO Last administered on 11/07/18 20:11; Start 11/04/18 at 21:00 Saliva Substitute (Mouthkote) SPRAY NEEDED Q1HP PRN MT ORAL PAIN/DISCOMFORT Last administered on 11/07/18 16:29; Start 11/03/18 at 12:00 Trazodone HCl (Desyrel) 50 mg QHSP PRN PO INSOMNIA Last administered on 11/03/18 23:54; Start 11/01/18 at 15:15 Allergies Coded Allergies: Penicillins (Verified Allergy, Unknown, 04/30/18) HINA GARCIA DO Nov 08, 2018 9:39 am
[2018-11-08] MEDS: PROPRANOLOL 10 MG TAB PO SCH ×2 (15:43→22:01)
[2018-11-08 18:00] VITALS: BP 148/88
[2018-11-08] MEDS: QUEtiapine FUMARATE 200 MG TAB PO SCH (22:00)
[2018-11-09 06:26] VITALS: BP 115/82
[2018-11-09] MEDS: DIVALPROEX 500MG *ER* TAB PO SCH ×2 (08:59→21:30)
[2018-11-09] MEDS: BENZTROPINE 1 MG TAB PO SCH ×2 (08:59→21:30)
[2018-11-09] MEDS: PROPRANOLOL 10 MG TAB PO SCH ×3 (08:59→21:30)
[2018-11-09] MEDS: PALIPERIDONE 3 MG ER TAB (INVEGA) PO SCH ×2 (08:59→21:30)
[2018-11-09 18:00] VITALS: BP 128/83
[2018-11-09 18:14] VITALS: BP 128/83
[2018-11-09] MEDS: QUEtiapine FUMARATE 200 MG TAB PO SCH (21:00)
[2018-11-09] MEDS: traZODone 50 MG TAB PO PRN (21:30)
[2018-11-10 06:50] VITALS: BP 142/80
[2018-11-10 09:13] VITALS: BP 140/86
[2018-11-10] MEDS: PALIPERIDONE 3 MG ER TAB (INVEGA) PO SCH ×2 (09:13→21:02)
[2018-11-10] MEDS: BENZTROPINE 1 MG TAB PO SCH ×2 (09:13→21:02)
[2018-11-10] MEDS: PROPRANOLOL 10 MG TAB PO SCH (09:13)
[2018-11-10] MEDS: DIVALPROEX 500MG *ER* TAB PO SCH ×2 (09:14→21:02)
[2018-11-10] MEDS: SODIUM CHLORIDE NASAL 0.65% SPRAY BTL (OCEAN) PRN ×2 (14:09→19:09)
[2018-11-10 18:05] VITALS: BP 148/86
[2018-11-10] MEDS: QUEtiapine FUMARATE 200 MG TAB PO SCH (21:02)
[2018-11-10] MEDS: traZODone 50 MG TAB PO PRN (21:02)
[2018-11-11] MEDS: SODIUM CHLORIDE NASAL 0.65% SPRAY BTL (OCEAN) PRN (05:59)
[2018-11-11 06:29] VITALS: BP 131/81
[2018-11-11] MEDS: PALIPERIDONE 3 MG ER TAB (INVEGA) PO SCH ×2 (09:12→21:56)
[2018-11-11] MEDS: BENZTROPINE 1 MG TAB PO SCH ×2 (09:12→21:56)
[2018-11-11] MEDS: DIVALPROEX 500MG *ER* TAB PO SCH ×2 (09:12→21:56)
--- NOTE | 2018-11-11 10:27 | MHIPNPDOC ---
[facility] Progress Note Progress Note DATE OF SERVICE: 11/11/18 HISTORY: Per Dr. Willis admit note: This is a 18-year-old white male who was brought to the emergency room by his father at the suggestion of the patient's therapist Lalit Saldivar from [facility]. Apparently the patient had been exhibiting manic like symptoms and had stated having thoughts of pushing someone would kill him and complained of lack of sleep and of hallucinations. The patient admitted he had been feeling depressed and anxious and having difficulty thinking clearly when he was in the emergency room. He stated that he had not been sleeping well for a few days. I asked if he was suicidal and wanting to harm himself and he stated that he wished someone would do it for him. He did not answer when he was asked if he had thoughts of harming others but the dad stated the patient, "only if I am provoked". The patient apparently had been staying at his mothers house for a few days. He was taking trazodone and it seemed that this was having an opposite effect. The patient's father stated that he had been yelling in his room for hours and saying that his grandfather who was was telling him what medications to take or not to take, what he should do. The patient apparently had been prescribed Seroquel 50 mg and Hydroxyzine by [facility]. It seemed that after he took the medications the day before he had been able to sleep somewhat. The dad stated that the night before the patient was in the bathroom cutting his hair and attempting to color it with honey and charcoal toothpaste. While in the emergency room the patient became very agitated and he had to be given medication and restraint. The patient today had been pretty agitated with disorganized thoughts. At times he was yelling at staff. He then complained of having some swelling of the tongue and he was given Cogentin 2 mg and this appeared that he had been given some Haldol in the emergency room and this was probably a reaction from the Haldol. He was also given some Ativan as needed and the patient finally feel asleep and at that point was when I went to see the patient. I did not feel that it was appropriate to awaken the patient at that point because he had been so agitated and had just fallen asleep. Therefore most of the information is from the chart. VITAL SIGNS: See below. NEW TEST RESULTS: depakote level 85.2 (therapeutic) CURRENT MEDICATIONS: See below. MENTAL STATUS EXAMINATION: The patient is alert and oriented times three. Eye contact is intermittent, Activity is less increased, but able to sit during interview although slightly restless/anxious. He is verbally spontaneous and less hyperverbal and tangential. Continues to endorse his "subconscious" speaking to him although less. Less mumbling to himself responding to internal stimuli. Continues to endorse bizarre, concrete thoughts and delusions. He admits that his mood is "anxious" due to construction noise. His affect is improved mixed hypomanic. He is not suicidal or homicidal. Concentration is poor. Memory is grossly intact. Insight and judgment is poor. DIAGNOSES: Bipolar disorder, type 1, manic with psychotic symptoms. Autism spectrum disorder. ASSESSMENT:Pt seen and states he's ok. States his anxiety is improving despite the construction as states he's getting used to you like a plane engine starting up and starting making plane engine start up noises and acting like he was starting up an engine. It was bizarre. Pt states his "subconscious" is speaking to him less and he's working on ignoring it. Continues to endorse periods of internal hyperactivity that are improving either secondary to outside (construction noise) or inside stimuli. Per nursing, pt responding to internal stimuli less, talking to self less, and is less bizarre. Continues to have bizarre thoughts that are improving. Has very concrete thoughts. He is compliant with his medications and states he thinks they're helpful. Tolerated invega sustenna im last week. Pt is sleeping at night. Is more redirectable and less interruptive when someone is talking to him. Denies SI/HI. MANAGEMENT PLAN: continue plan. invega sustenna 234mg im 4 days ago and 156mg im today Cogentin 1 mg BID invega 3mg bid for psychosis Atarax 25 mg Q4HP PRN PO ANXIETY/AGITATION Ativan 2 mg Q4HP PRN PO ANXIETY/AGITATION SEROquel 200 mg QHS Trazodone 50 mg QHSP PRN PO INSOMNIA depakote er 500mg bid zyprexa 10mg q4hr prn bj/agitation TIME SPENT:30 minutes. Vital Signs Vital Signs Date Time Temp Pulse Resp B/P (MAP) Pulse Ox O2 Delivery O2 Flow Rate FiO2 11/11/18 06:29 97.1 102 20 131/81 (98) Current Medications Current Medications Acetaminophen (Tylenol Tab) 650 mg Q6HP PRN PO HEADACHE or DISCOMFORT Last administered on 11/05/18 01:37; Start 11/01/18 at 15:15 Al Hydrox/Mg Hydrox/Simethicone (Mylanta) 30 ml Q4HP PRN PO HEARTBURN/INDIGESTION; Start 11/01/18 at 15:15 Benztropine Mesylate (Cogentin) 1 mg BID PO Last administered on 11/11/18 09:12; Start 11/02/18 at 09:00 Cetylpyridinium Chloride (Cepacol) 1 rodolfo Q2HP PRN PO COUGH Last administered on 11/06/18 20:13; Start 11/06/18 at 18:00 Divalproex Sodium (Depakote Er) 500 mg BID PO Last administered on 11/11/18 09:12; Start 11/04/18 at 21:00 Home Med (Med Rec Complete!) ASDIRECTED XX ; Start 11/01/18 at 17:00; Stop 11/01/18 at 17:00; Status DC Hydroxyzine HCl (Atarax) 25 mg Q4HP PRN PO ANXIETY/AGITATION Last administered on 11/03/18at 23:54; Start 11/02/18 at 07:45 Lorazepam (Ativan) 2 mg Q4HP PRN PO ANXIETY/AGITATION Last administered on 11/07/18 20:11; Start 11/02/18 at 07:45 Magnesium Hydroxide (Milk Of Magnesia) 30 ml DAILYPRN PRN PO CONSTIPATION; Start 11/01/18 at 15:15 Olanzapine (ZyPREXA ZYDIS) 10 mg Q4HP PRN PO ANXIETY/AGITATION; Start 11/04/18 at 11:30 Paliperidone (Invega) 3 mg QAM PO Last administered on 11/11/18 09:12; Start 11/05/18 at 09:00 Paliperidone (Invega) 3 mg QHS PO Last administered on 11/10/18 21:02; Start 11/05/18 at 21:00 Propranolol HCl (Inderal) 10 mg TID PO Last administered on 11/10/18 09:13; Start 11/08/18 at 16:00; Stop 11/10/18 at 09:45; Status DC Quetiapine Fumarate (SEROquel) 100 mg QHS PO Last administered on 11/02/18 21:20; Start 11/02/18 at 21:00; Stop 11/03/18 at 11:47; Status DC Quetiapine Fumarate (SEROquel) 150 mg QHS PO Last administered on 11/03/18 20:07; Start 11/03/18 at 21:00; Stop 11/04/18 at 11:27; Status DC Quetiapine Fumarate (SEROquel) 200 mg QHS PO Last administered on 11/10/18 21:02; Start 11/04/18 at 21:00 Saliva Substitute (Mouthkote) SPRAY NEEDED Q1HP PRN MT ORAL PAIN/DISCOMFORT Last administered on 11/07/18 16:29; Start 11/03/18 at 12:00 Sodium Chloride ([place] Nasal [place]) 2 spray Q2HP PRN NA NASAL DRYNESS Last administered on 11/11/18 05:59; Start 11/09/18 at 09:45 Trazodone HCl (Desyrel) 50 mg QHSP PRN PO INSOMNIA Last administered on 11/10/18 21:02; Start 11/01/18 at 15:15 Allergies Coded Allergies: Penicillins (Verified Allergy, Unknown, 04/30/18) HINA GARCIA DO Nov 11, 2018 10:27 am
[2018-11-11] MEDS ORDERED: PALIPERIDONE PALMITATE 156 MG/1ML INJ(INVEGA SUSTENNA)(J2426) IM ONE (13:00)
[2018-11-11] MEDS: hydrOXYzine 25 MG TAB PO PRN (14:12)
[2018-11-11 18:53] VITALS: BP 116/78
[2018-11-11] MEDS: LORazepam 2 MG TAB PO PRN (21:56)
[2018-11-11] MEDS: QUEtiapine FUMARATE 200 MG TAB PO SCH (21:56)
[2018-11-12 07:00] VITALS: BP 140/86
[2018-11-12] MEDS: BENZTROPINE 1 MG TAB PO SCH ×2 (08:45→22:14)
[2018-11-12] MEDS: DIVALPROEX 500MG *ER* TAB PO SCH ×2 (08:45→22:14)
[2018-11-12] MEDS: PALIPERIDONE 3 MG ER TAB (INVEGA) PO SCH ×2 (08:45→22:14)
--- NOTE | 2018-11-12 10:04 | MHIPNPDOC ---
[facility] Progress Note Progress Note DATE OF SERVICE: 11/12/18 HISTORY: Per Dr. Willis admit note: This is a 18-year-old white male who was brought to the emergency room by his father at the suggestion of the patient's therapist Lalit Saldivar from [facility]. Apparently the patient had been exhibiting manic like symptoms and had stated having thoughts of pushing someone would kill him and complained of lack of sleep and of hallucinations. The patient admitted he had been feeling depressed and anxious and having difficulty thinking clearly when he was in the emergency room. He stated that he had not been sleeping well for a few days. I asked if he was suicidal and wanting to harm himself and he stated that he wished someone would do it for him. He did not answer when he was asked if he had thoughts of harming others but the dad stated the patient, "only if I am provoked". The patient apparently had been staying at his mothers house for a few days. He was taking trazodone and it seemed that this was having an opposite effect. The patient's father stated that he had been yelling in his room for hours and saying that his grandfather who was was telling him what medications to take or not to take, what he should do. The patient apparently had been prescribed Seroquel 50 mg and Hydroxyzine by [facility]. It seemed that after he took the medications the day before he had been able to sleep somewhat. The dad stated that the night before the patient was in the bathroom cutting his hair and attempting to color it with honey and charcoal toothpaste. While in the emergency room the patient became very agitated and he had to be given medication and restraint. The patient today had been pretty agitated with disorganized thoughts. At times he was yelling at staff. He then complained of having some swelling of the tongue and he was given Cogentin 2 mg and this appeared that he had been given some Haldol in the emergency room and this was probably a reaction from the Haldol. He was also given some Ativan as needed and the patient finally feel asleep and at that point was when I went to see the patient. I did not feel that it was appropriate to awaken the patient at that point because he had been so agitated and had just fallen asleep. Therefore most of the information is from the chart. VITAL SIGNS: See below. NEW TEST RESULTS: depakote level 85.2 (therapeutic) CURRENT MEDICATIONS: See below. MENTAL STATUS EXAMINATION: The patient is alert and oriented times three. Eye contact is intermittent, Activity is less increased, but able to sit during interview. He is verbally spontaneous and less hyperverbal and tangential. Continues to endorse his "subconscious" speaking to him although less. Less mumbling to himself responding to internal stimuli. Continues to endorse bizarre, concrete thoughts and delusions although appear to be improving. They are associative. He admits that his mood is "ok.". His affect is is more calm and euthymic. He is not suicidal or homicidal. Concentration is improving. Memory is grossly intact. Insight and judgment is poor to fair. DIAGNOSES: Bipolar disorder, type 1, manic with psychotic symptoms. Autism spectrum disorder. ASSESSMENT:Pt seen and states he's ok. Pt rambling on in hyperverbal fashion about impulsive thoughts to "flirt" and states that he has to remember he's here to get help for his mood. He then went right in to stating that he's not planning on drinking alcohol until he's 19 b/c it's an "aphrodisiac" and makes him verbally impulsive. Pt continues to state his "subconscious" is speaking but states "I'm not trying to listen to that now". Continues to endorse periods of internal hyperactivity that are improving either secondary to outside (construction noise) or inside stimuli. Per nursing, pt responding to internal stimuli less, talking to self less, and is less bizarre. Continues to have bizarre thoughts that are improving. Has very concrete thoughts. He is compliant with his medications and states he thinks they're helpful. Tolerated invega sustenna 156mg im given yesterday and will monitor for symptom improvement. Pt is sleeping at night. Is more redirectable and less interru ptive when someone is talking to him. Denies SI/HI. MANAGEMENT PLAN: continue plan. Cogentin 1 mg BID invega sustenna 234mg im 11/08/18 and 156mg im 11/11/18 Atarax 25 mg Q4HP PRN PO ANXIETY/AGITATION Ativan 2 mg Q4HP PRN PO ANXIETY/AGITATION SEROquel 200 mg QHS Trazodone 50 mg QHSP PRN PO INSOMNIA depakote er 500mg bid zyprexa 10mg q4hr prn bj/agitation TIME SPENT:30 minutes. Vital Signs Vital Signs Date Time Temp Pulse Resp B/P (MAP) Pulse Ox O2 Delivery O2 Flow Rate FiO2 11/12/18 07:00 98.5 96 17 140/86 (104) Current Medications Current Medications Acetaminophen (Tylenol Tab) 650 mg Q6HP PRN PO HEADACHE or DISCOMFORT Last administered on 11/05/18 01:37; Start 11/01/18 at 15:15 Al Hydrox/Mg Hydrox/Simethicone (Mylanta) 30 ml Q4HP PRN PO HEARTBURN/INDIGESTION; Start 11/01/18 at 15:15 Benztropine Mesylate (Cogentin) 1 mg BID PO Last administered on 11/12/18 08:45; Start 11/02/18 at 09:00 Cetylpyridinium Chloride (Cepacol) 1 rodolfo Q2HP PRN PO COUGH Last administered on 11/06/18 20:13; Start 11/06/18 at 18:00 Divalproex Sodium (Depakote Er) 500 mg BID PO Last administered on 11/12/18 08:45; Start 11/04/18 at 21:00 Home Med (Med Rec Complete!) ASDIRECTED XX ; Start 11/01/18 at 17:00; Stop 11/01/18 at 17:00; Status DC Hydroxyzine HCl (Atarax) 25 mg Q4HP PRN PO ANXIETY/AGITATION Last administered on 11/11/18at 14:12; Start 11/02/18 at 07:45 Lorazepam (Ativan) 2 mg Q4HP PRN PO ANXIETY/AGITATION Last administered on 11/11/18 21:56; Start 11/02/18 at 07:45 Magnesium Hydroxide (Milk Of Magnesia) 30 ml DAILYPRN PRN PO CONSTIPATION; Start 11/01/18 at 15:15 Olanzapine (ZyPREXA ZYDIS) 10 mg Q4HP PRN PO ANXIETY/AGITATION; Start 11/04/18 at 11:30 Paliperidone (Invega) 3 mg QAM PO Last administered on 11/12/18at 08:45; Start 11/05/18 at 09:00 Paliperidone (Invega) 3 mg QHS PO Last administered on 11/11/18 21:56; Start 11/05/18 at 21:00 Propranolol HCl (Inderal) 10 mg TID PO Last administered on 11/10/18 09:13; Start 11/08/18 at 16:00; Stop 11/10/18 at 09:45; Status DC Quetiapine Fumarate (SEROquel) 100 mg QHS PO Last administered on 11/02/18 21:20; Start 11/02/18 at 21:00; Stop 11/03/18 at 11:47; Status DC Quetiapine Fumarate (SEROquel) 150 mg QHS PO Last administered on 11/03/18 20:07; Start 11/03/18 at 21:00; Stop 11/04/18 at 11:27; Status DC Quetiapine Fumarate (SEROquel) 200 mg QHS PO Last administered on 11/11/18 21:56; Start 11/04/18 at 21:00 Saliva Substitute (Mouthkote) SPRAY NEEDED Q1HP PRN MT ORAL PAIN/DISCOMFORT Last administered on 11/07/18 16:29; Start 11/03/18 at 12:00 Sodium Chloride ([place] Nasal [place]) 2 spray Q2HP PRN NA NASAL DRYNESS Last administered on 11/11/18 05:59; Start 11/09/18 at 09:45 Trazodone HCl (Desyrel) 50 mg QHSP PRN PO INSOMNIA Last administered on 11/10/18 21:02; Start 11/01/18 at 15:15 Allergies Coded Allergies: Penicillins (Verified Allergy, Unknown, 04/30/18) HINA GARCIA DO Nov 12, 2018 10:04 am
[2018-11-12 18:25] VITALS: BP 122/84
[2018-11-12] MEDS: LORazepam 2 MG TAB PO PRN (22:14)
[2018-11-12] MEDS: QUEtiapine FUMARATE 200 MG TAB PO SCH (22:14)
[2018-11-13 06:42] VITALS: BP 136/74
[2018-11-13] MEDS: PALIPERIDONE 3 MG ER TAB (INVEGA) PO SCH ×2 (09:23→22:45)
[2018-11-13] MEDS: DIVALPROEX 500MG *ER* TAB PO SCH ×2 (09:23→22:45)
[2018-11-13] MEDS: BENZTROPINE 1 MG TAB PO SCH ×2 (09:23→22:45)
--- NOTE | 2018-11-13 09:47 | MHIPNPDOC ---
[facility] Progress Note Progress Note DATE OF SERVICE: 11/13/18 HISTORY: Per Dr. Willis admit note: This is a 18-year-old white male who was brought to the emergency room by his father at the suggestion of the patient's therapist Lalit Saldivar from [facility]. Apparently the patient had been exhibiting manic like symptoms and had stated having thoughts of pushing someone would kill him and complained of lack of sleep and of hallucinations. The patient admitted he had been feeling depressed and anxious and having difficulty thinking clearly when he was in the emergency room. He stated that he had not been sleeping well for a few days. I asked if he was suicidal and wanting to harm himself and he stated that he wished someone would do it for him. He did not answer when he was asked if he had thoughts of harming others but the dad stated the patient, "only if I am provoked". The patient apparently had been staying at his mothers house for a few days. He was taking trazodone and it seemed that this was having an opposite effect. The patient's father stated that he had been yelling in his room for hours and saying that his grandfather who was was telling him what medications to take or not to take, what he should do. The patient apparently had been prescribed Seroquel 50 mg and Hydroxyzine by [facility]. It seemed that after he took the medications the day before he had been able to sleep somewhat. The dad stated that the night before the patient was in the bathroom cutting his hair and attempting to color it with honey and charcoal toothpaste. While in the emergency room the patient became very agitated and he had to be given medication and restraint. The patient today had been pretty agitated with disorganized thoughts. At times he was yelling at staff. He then complained of having some swelling of the tongue and he was given Cogentin 2 mg and this appeared that he had been given some Haldol in the emergency room and this was probably a reaction from the Haldol. He was also given some Ativan as needed and the patient finally feel asleep and at that point was when I went to see the patient. I did not feel that it was appropriate to awaken the patient at that point because he had been so agitated and had just fallen asleep. Therefore most of the information is from the chart. VITAL SIGNS: See below. NEW TEST RESULTS: depakote level 85.2 (therapeutic) CURRENT MEDICATIONS: See below. MENTAL STATUS EXAMINATION: The patient is alert and oriented times three. Eye contact is intermittent, Activity is less increased, but able to sit during interview. He is verbally spontaneous and less hyperverbal and tangential. Continues to endorse his "subconscious" speaking to him but is trying to ignore it. Less mumbling to himself responding to internal stimuli. Continues to endorse bizarre, concrete thoughts and delusions although appear to be improving. They are associative. He admits that his mood is "ok.". His affect is is more calm and euthymic. He is not suicidal or homicidal. Concentration is improving. Memory is grossly intact. Insight and judgment is poor to fair. DIAGNOSES: Bipolar disorder, type 1, manic with psychotic symptoms. Autism spectrum disorder. ASSESSMENT:Pt seen and states he's ok. Pt rambling less today in hyperverbal fashion. Pt continues to state his "subconscious" is speaking to him but is trying not to think about it. Continues to endorse periods of internal hyperactivity that are improving either secondary to outside (construction noise) or inside stimuli. Per nursing, pt responding to internal stimuli less, talking to self less. Continues to have bizarre thoughts that are improving. Has very concrete thoughts. He is compliant with his medications and states he thinks they're helpful. Tolerated invega sustenna 156mg im given yesterday and will monitor for symptom improvement. Pt is sleeping at night. Is more redirectable and less interruptive when someone is talking to him. Denies SI/HI. MANAGEMENT PLAN: continue plan. D/c home tomorrow. Cogentin 1 mg BID invega sustenna 234mg im 11/08/18 and 156mg im 11/11/18 Atarax 25 mg Q4HP PRN PO ANXIETY/AGITATION Ativan 2 mg Q4HP PRN PO ANXIETY/AGITATION SEROquel 200 mg QHS Trazodone 50 mg QHSP PRN PO INSOMNIA depakote er 500mg bid zyprexa 10mg q4hr prn bj/agitation TIME SPENT:30 minutes. Vital Signs Vital Signs Date Time Temp Pulse Resp B/P (MAP) Pulse Ox O2 Delivery O2 Flow Rate FiO2 11/13/18 06:42 97.6 110 18 136/74 (94) Current Medications Current Medications Acetaminophen (Tylenol Tab) 650 mg Q6HP PRN PO HEADACHE or DISCOMFORT Last administered on 11/05/18 01:37; Start 11/01/18 at 15:15 Al Hydrox/Mg Hydrox/Simethicone (Mylanta) 30 ml Q4HP PRN PO HEARTBURN/INDIGESTION; Start 11/01/18 at 15:15 Benztropine Mesylate (Cogentin) 1 mg BID PO Last administered on 11/13/18 09:23; Start 11/02/18 at 09:00 Cetylpyridinium Chloride (Cepacol) 1 rodolfo Q2HP PRN PO COUGH Last administered on 11/06/18 20:13; Start 11/06/18 at 18:00 Divalproex Sodium (Depakote Er) 500 mg BID PO Last administered on 11/13/18 09:23; Start 11/04/18 at 21:00 Home Med (Med Rec Complete!) ASDIRECTED XX ; Start 11/01/18 at 17:00; Stop 11/01/18 at 17:00; Status DC Hydroxyzine HCl (Atarax) 25 mg Q4HP PRN PO ANXIETY/AGITATION Last administered on 11/11/18 14:12; Start 11/02/18 at 07:45 Lorazepam (Ativan) 2 mg Q4HP PRN PO ANXIETY/AGITATION Last administered on 11/12/18 22:14; Start 11/02/18 at 07:45 Magnesium Hydroxide (Milk Of Magnesia) 30 ml DAILYPRN PRN PO CONSTIPATION; Start 11/01/18 at 15:15 Olanzapine (ZyPREXA ZYDIS) 10 mg Q4HP PRN PO ANXIETY/AGITATION; Start 11/04/18 at 11:30 Paliperidone (Invega) 3 mg QAM PO Last administered on 11/13/18 09:23; Start 11/05/18 at 09:00 Paliperidone (Invega) 3 mg QHS PO Last administered on 11/12/18 22:14; Start 11/05/18 at 21:00 Propranolol HCl (Inderal) 10 mg TID PO Last administered on 11/10/18 09:13; Start 11/08/18 at 16:00; Stop 11/10/18 at 09:45; Status DC Quetiapine Fumarate (SEROquel) 100 mg QHS PO Last administered on 11/02/18at 21:20; Start 11/02/18 at 21:00; Stop 11/03/18 at 11:47; Status DC Quetiapine Fumarate (SEROquel) 150 mg QHS PO Last administered on 11/03/18at 20:07; Start 11/03/18 at 21:00; Stop 11/04/18 at 11:27; Status DC Quetiapine Fumarate (SEROquel) 200 mg QHS PO Last administered on 11/12/18at 22:14; Start 11/04/18 at 21:00 Saliva Substitute (Mouthkote) SPRAY NEEDED Q1HP PRN MT ORAL PAIN/DISCOMFORT Last administered on 11/07/18at 16:29; Start 11/03/18 at 12:00 Sodium Chloride ([place] Nasal [place]) 2 spray Q2HP PRN NA NASAL DRYNESS Last administered on 11/11/18at 05:59; Start 11/09/18 at 09:45 Trazodone HCl (Desyrel) 50 mg QHSP PRN PO INSOMNIA Last administered on 11/10/18 21:02; Start 11/01/18 at 15:15 Allergies Coded Allergies: Penicillins (Verified Allergy, Unknown, 04/30/18) HINA GARCIA DO Nov 13, 2018 9:47 am
[2018-11-13 18:08] VITALS: BP 138/79
[2018-11-13] MEDS: QUEtiapine FUMARATE 200 MG TAB PO SCH (22:45)
[2018-11-14 06:18] VITALS: BP 130/72
[2018-11-14] MEDS ORDERED: QUET1TAB9 PO (09:14)
[2018-11-14] MEDS ORDERED: DEPA500T2 PO (09:14)
[2018-11-14] MEDS ORDERED: TRAZO50TA PO (09:14)
[2018-11-14] MEDS ORDERED: INVE234I IM (09:14)
[2018-11-14] MEDS ORDERED: HYDR-3363 PO (09:14)
[2018-11-14] MEDS ORDERED: BENZ-52 PO (09:14)
--- NOTE | 2018-11-14 09:15 | MHDSPDOC ---
[facility] Discharge Summary Discharge Summary DATE OF ADMISSION: Nov 01, 2018 at 3:14 pm DATE OF DISCHARGE: Nov 14, 2018 DISCHARGE DIAGNOSES: Bipolar disorder, type 1, manic with psychotic symptoms. Autism spectrum disorder. REASON FOR ADMISSION: Per Dr. Willis admit note: This is a 18-year-old white male who was brought to the emergency room by his father at the suggestion of the patient's therapist Lalit Saldivar from [facility]. Apparently the patient had been exhibiting manic like symptoms and had stated having thoughts of pushing someone would kill him and complained of lack of sleep and of hallucinations. The patient admitted he had been feeling depressed and anxious and having difficulty thinking clearly when he was in the emergency room. He stated that he had not been sleeping well for a few days. I asked if he was suicidal and wanting to harm himself and he stated that he wished someone would do it for him. He did not answer when he was asked if he had thoughts of harming others but the dad stated the patient, "only if I am provoked". The patient apparently had been staying at his mothers house for a few days. He was taking trazodone and it seemed that this was having an opposite effect. The patient's father stated that he had been yelling in his room for hours and saying that his grandfather who was was telling him what medications to take or not to take, what he should do. The patient apparently had been prescribed Seroquel 50 mg and Hydroxyzine by [facility]. It seemed that after he took the medications the day before he had been able to sleep somewhat. The dad stated that the night before the patient was in the bathroom cutting his hair and attempting to color it with honey and charcoal toothpaste. While in the emergency room the patient became very agitated and he had to be given medication and restraint. The patient today had been pretty agitated with disorganized thoughts. At times he was yelling at staff. He then complained of having some swelling of the tongue and he was given Cogentin 2 mg and this appeared that he had been given some Haldol in the emergency room and this was probably a reaction from the Haldol. He was also given some Ativan as needed and the patient finally feel asleep and at that point was when I went to see the patient. I did not feel that it was appropriate to awaken the patient at that point because he had been so agitated and had just fallen asleep. Therefore most of the information is from the chart. CONSULTANTS INVOLVED: none TEST RESULTS: depakote level 85.2 (therapeutic) TREATMENT AND PROGRESS ON THE UNIT : Pt was admitted to [facility], seen for psychiatric assessment and started on invega increased to 6mg bid with tolerance and benefit so he was given invega sustenna 234mg im followed by 156mg im 3 days later for medication compliance and tolerated both well with improvement in symptoms. His oral invega was discontinued once invega sustenna given. He was also started on depakote er 500mg bid for mood stabilization that he tolerated well and his manic symptoms improved. He was continued on his outpatient seroquel 200mg qhs for bipolar disorder. He was provided cogentin 1mg bid for eps, vistaril 25mg q6hr prn anxiety, and trazodone 50mg qhs prn insomnia. Pt found his medications beneficial and tolerated them well. He attended groups daily during his stay. His symptoms improved with treatment to baseline status of concrete and occasionally bizarre thoughts and minor AH of his "subconscious" speaking to him that he could ignore. On day of discharge he denied depression, anxiety, insomnia, SI/HI,, delusions, paranoia. He had baseline AH and occasional bizarre thoughts as stated previously. He was discharged home after family meeting with his father with follow-up at [facility]. He felt safe for discharge DISCHARGE ASSESSMENT: Pt seen and states he's good. His thoughts remain concrete and occasionally bizarre which appears to be his baseline function given his history of Autism. Pt continues to state his "subconscious" is speaking to him but is able to shut out and ignore. He is compliant with his medications and states he thinks they're helpful. He is sleeping at night. He denies depression, anxiety, insomnia, SI/HI,, delusions, paranoia. He had baseline AH and occasional bizarre thoughts that are baseline. Feels safe to be discharged home with his father. MENTAL STATUS EXAMINATION ON DISCHARGE: The patient is alert and oriented times three. Eye contact is intermittent. Activity is average and calm. He is verbally spontaneous with reg rate and volume. Continues to endorse his "subconscious" speaking to him but is able to ignore it and appears to be baseline. Does not appear to be responding to internal stimuli. Denies paranoia. Continues to endorse mild bizarre, concrete thoughts that appear to be his baseline. Denies delusions although. He admits that his mood is "good.". His affect is is more calm and euthymic. He is not suicidal or homicidal. Concentration is fair. Memory is grossly intact. Insight and judgment is good to fair. MEDICATIONS ON DISCHARGE: invega sustenna 234mg im qmonthly Atarax 25 mg q6hr prn anxiety SEROquel 200 mg QHS Trazodone 50 mg QHSP PRN PO INSOMNIA depakote er 500mg bid cogentin 1mg bid PLAN/FOLLOWUP ARRANGEMENTS: d/c home with father with follow-up at [facility]. The amount of time spent in the coordination of care for this patient was approximately 30 minutes. Vital Signs/I&Os Vital Signs Date Time Temp Pulse Resp B/P (MAP) Pulse Ox O2 Delivery O2 Flow Rate FiO2 11/14/18 06:18 98.2 110 20 130/72 (91) Medications Scheduled Hydroxyzine HCl (Hydroxyzine HCl) 25 Mg Tab, 2 TAB PO DAILY, (Reported) NEW MED Quetiapine Fumerate (Quetiapine Fumarate) 50 Mg Tab, 2 TAB PO QHS, (Reported) NEW MED; MD INSTRUCTED PT- 1 TABLET, MAY TAKE ANOTHER IF SYMPTOMS PERSIST. Sertraline Hcl (Zoloft) 50 Mg Tab, 50 MG PO QHS, (Reported) Scheduled PRN Trazodone HCl (Trazodone HCl) 50 Mg Tab, 50 MG PO QHS PRN for INSOMNIA, (Reported) Allergies Coded Allergies: Penicillins (Verified Allergy, Unknown, 04/30/18) HINA GARCIA DO Nov 14, 2018 9:15 am
[2018-11-14] MEDS: PALIPERIDONE 3 MG ER TAB (INVEGA) PO SCH (10:08)
[2018-11-14] MEDS: BENZTROPINE 1 MG TAB PO SCH (10:08)
[2018-11-14] MEDS: DIVALPROEX 500MG *ER* TAB PO SCH (10:09)
== END 2018-11-14 13:05 | disposition home or self-care (01) | DRG 885 ==
LOC: M ED 11:00 → M ED INP 15:14 → M PSY 18:48
PROVIDERS: ADMIT Psychiatry & Neurology Psychiatry; ATTEND Psychiatry & Neurology Psychiatry
DX: F31.2 Bipolar disorder, current episode manic severe with psychotic features (principal); F84.0 Autistic disorder; Z81.8 Family history of other mental and behavioral disorders; Z79.899 Other long term (current) drug therapy; Z88.0 Allergy status to penicillin

== ENCOUNTER → 2019-09-06 | Outpatient (REF) | payer OTHER, MEDICAID ==
[~2019-09-06] MED LIST changes: +DEPA500T2 PO; +HYDR-3363 PO; +INVE234I IM; +QUET200T2 PO; +QUET5TAB PO; +SERT-141 PO; -SERT50TA PO; +TRAZ-252 PO; +TRAZ1TAB10 PO; -TRAZO50TA PO; +ZOLO50TA PO
[2019-09-06 13:28] LABS: INFLUENZA A AMPLIFICATION NEGATIVE (NEGATIVE); INFLUENZA B AMPLIFICATION NEGATIVE (NEGATIVE)
== END ==
LOC: M LAB REF 11:59
PROVIDERS: ATTEND Physician Assistant Medical
DX: R50.9 Fever, unspecified (principal)

== ENCOUNTER → 2019-12-09 | Outpatient (REF) | payer OTHER | LOC: M LABDRAW1 17:23 | PROVIDERS: ATTEND Family Medicine | DX: Z72.51 High risk heterosexual behavior (principal) ==

== ENCOUNTER 2020-08-25 08:57 | Emergency (ER) | payer OTHER ==
[~2020-08-25] VITALS: Ht 176.5 cm; Wt 74.4 kg
[2020-08-25] MEDS ORDERED: LAMO25TA4 PO (09:03)
[2020-08-25] MEDS ORDERED: LIDOCAINE W/EPINEPHRINE 1% 20ML VIAL SC ONE (09:30)
[2020-08-25] MEDS ORDERED: BOOSTRIX/ADACEL VACCINE (DIPHTH/PERTUSS/ACELL/TETANUS) 0.5ML SYR IM ONE (09:30)
--- NOTE | 2020-08-25 09:44 | REP ---
INDICATION: syncope, right eyebrow laceration. COMPARISON: Comparison head CT study December 21, 2015.. TECHNIQUE: Helical scanning is acquired. 5 mm axial images were reformatted. Coronal MPR images were generated. FINDINGS: Bone window settings demonstrate an intact bony calvarium. There is no evidence of skull fracture or incidental bony calvarial lesion. The visualized paranasal sinuses appear clear. No intraorbital abnormality is seen. On soft tissue window setting images; the lateral, third, and fourth ventricles are normal in size and position. Schulz-white differentiation pattern is normal above and below the tentorium. There are is no evidence of intracranial hemorrhage. No mass, edema, infarction, or midline shift is seen. No extra-axial fluid collection is appreciated. IMPRESSION: Negative noncontrast head CT. <Electronically signed by John Dooley > 08/25/20 0745
[2020-08-25 10:06] LABS: BASO % 0.5 % (0.0-1.0); EOS # 0.1 10^3/uL (0.0-0.5); EOS % 1.2 % (0.0-3.0); HEMATOCRIT 44.5 % (42.0-52.0); HEMOGLOBIN 14.5 g/dl (13.5-17.5); LYMPH # 1.3 10^3/uL (1.5-5.0); LYMPH % 19.3 % (24.0-44.0); MEAN CORPUSCULAR HEMOGLOBIN 29.1 pg (27.0-33.0); MEAN CORPUSCULAR HGB CONC 32.6 g/dl (32.0-36.5); MEAN CORPUSCULAR VOLUME 89.4 fl (80.0-96.0); MONO # 0.6 10^3/uL (0.0-0.8); MONO % 8.8 % (0.0-5.0); NEUTROPHILS # 4.5 10^3/uL (1.5-8.5); NEUTROPHILS % 69.9 % (36.0-66.0); PLATELET COUNT, AUTOMATED 203 10^3/uL (150-450); RED BLOOD COUNT 4.98 10^6/uL (4.30-6.10); WHITE BLOOD COUNT 6.5 10^3/uL (4.0-10.0)
[2020-08-25 10:36] LABS: BLOOD UREA NITROGEN 16 MG/DL (7-18); CALCIUM LEVEL 8.8 MG/DL (8.5-10.1); CARBON DIOXIDE LEVEL 28 MEQ/L (21-32); CHLORIDE LEVEL 110 MEQ/L (98-107); CREATININE FOR GFR 1.12 MG/DL (0.70-1.30); GLOMERULAR FILTRATION RATE > 60.0 (>60); GLUCOSE, FASTING 84 MG/DL (70-100); SODIUM LEVEL 144 MEQ/L (136-145)
--- NOTE | 2020-08-25 10:45 | REP ---
INDICATION: struck foot COMPARISON: None. TECHNIQUE: AP, lateral, bilateral oblique views right foot. FINDINGS: There is an oblique nondisplaced fracture of the 4th proximal phalanx. Remainder of the exam appears normal. IMPRESSION: Acute oblique nondisplaced fracture of the 4th proximal phalanx. <Electronically signed by Johnny Rea > 08/25/20 1045
[2020-08-25 11:44] VITALS: BP 130/73
== END 2020-08-25 12:10 | disposition home or self-care (01) ==
LOC: M ED 08:57
DX: R55 Syncope and collapse (principal); S01.81XA Laceration without foreign body of other part of head, initial encounter; S92.511A Displaced fracture of proximal phalanx of right lesser toe(s), initial encounter for closed fracture; W18.39XA Other fall on same level, initial encounter; Y92.018 Other place in single-family (private) house as the place of occurrence of the external cause; F90.9 Attention-deficit hyperactivity disorder, unspecified type; Z79.899 Other long term (current) drug therapy; Z88.0 Allergy status to penicillin

== ENCOUNTER → 2021-02-15 | Outpatient (CLI) | payer MEDICAID ==
[~2021-02-15] MED LIST changes: +LAMO25TA4 PO; +QUET50TA3 PO; -QUET5TAB PO
[2021-02-15 14:06] LABS: BASO % 0.5 % (0.0-1.0); EOS # 0.1 10^3/uL (0.0-0.5); EOS % 0.8 % (0.0-3.0); HEMATOCRIT 43.9 % (42.0-52.0); HEMOGLOBIN 14.8 g/dl (13.5-17.5); LYMPH # 1.6 10^3/uL (1.5-5.0); LYMPH % 24.6 % (24.0-44.0); MEAN CORPUSCULAR HEMOGLOBIN 29.3 pg (27.0-33.0); MEAN CORPUSCULAR HGB CONC 33.7 g/dl (32.0-36.5); MEAN CORPUSCULAR VOLUME 86.9 fl (80.0-96.0); MONO # 0.6 10^3/uL (0.0-0.8); MONO % 9.3 % (2.0-8.0); NEUTROPHILS # 4.2 10^3/uL (1.5-8.5); NEUTROPHILS % 64.6 % (36.0-66.0); PLATELET COUNT, AUTOMATED 239 10^3/uL (150-450); RED BLOOD COUNT 5.05 10^6/uL (4.30-6.10); WHITE BLOOD COUNT 6.4 10^3/uL (4.0-10.0)
[2021-02-15 14:31] LABS: HEMOGLOBIN A1c 4.9 %
[2021-02-15 14:41] LABS: ALBUMIN 4.2 GM/DL (3.2-5.2); ALT/SGPT 29 U/L (12-78); BILIRUBIN,DIRECT 0.3 MG/DL (0.0-0.2); BILIRUBIN,TOTAL 1.2 MG/DL (0.2-1.0); BLOOD UREA NITROGEN 15 MG/DL (7-18); CALCIUM LEVEL 9.1 MG/DL (8.5-10.1); CARBON DIOXIDE LEVEL 31 MEQ/L (21-32); CHLORIDE LEVEL 111 MEQ/L (98-107); CHOLESTEROL LEVEL 154 MG/DL (<200); CHOLESTEROL RISK RATIO 2.655 (<5); CREATININE FOR GFR 0.89 MG/DL (0.70-1.30); GLOMERULAR FILTRATION RATE > 60.0 (>60); GLUCOSE, FASTING 83 MG/DL (70-100); HDL CHOLESTEROL 58 MG/DL (>40); LDL CHOLESTEROL 72 MG/DL (<100); NON-HDL-C 96 MG/DL; PHOSPHORUS LEVEL 3.6 MG/DL (2.5-4.9); SODIUM LEVEL 142 MEQ/L (136-145); THYROID STIMULATING HORMONE 0.469 uIU/ML (0.358-3.740); TOTAL 25(OH) VITAMIN D 40.2 NG/ML (30.0-100.0); TOTAL PROTEIN 7.1 GM/DL (6.4-8.2); TRIGLYCERIDES LEVEL 118 MG/DL (<150)
--- NOTE | 2021-02-15 23:42 | ECGEPIP ---
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 Electronically Signed on 02-15-2021 23:41:59 EDT by Chet Ledesma
== END ==
LOC: M LAB 13:24
PROVIDERS: ATTEND Registered Nurse
DX: F31.2 Bipolar disorder, current episode manic severe with psychotic features (principal); E55.9 Vitamin D deficiency, unspecified; Z51.81 Encounter for therapeutic drug level monitoring; Z13.9 Encounter for screening, unspecified; Z79.899 Other long term (current) drug therapy

== ENCOUNTER → 2021-03-01 | Outpatient (REF) | payer OTHER ==
[2021-03-01 12:56] LABS: SEMEN APPEARANCE OPAQUE (OPAQUE); SEMEN VOLUME 1.1 ml (2.0-5.0)
[2021-03-01 12:57] LABS: SEMEN VISCOSITY LIQUID (LIQUID); WBC CONCENTRATION >1 M/ml (<=1 M/ml)
== END ==
LOC: M LAB REF 12:52
PROVIDERS: ATTEND Surgery
DX: Z30.2 Encounter for sterilization (principal)

== ENCOUNTER → 2021-03-24 | Outpatient (CLI) | payer OTHER ==
[2021-03-24 13:44] LABS: BASO % 0.5 % (0.0-1.0); EOS # 0.1 10^3/uL (0.0-0.5); EOS % 2.2 % (0.0-3.0); HEMOGLOBIN 15.2 g/dl (13.5-17.5); LYMPH # 2.1 10^3/uL (1.5-5.0); LYMPH % 33.3 % (24.0-44.0); MEAN CORPUSCULAR VOLUME 87.6 fl (80.0-96.0); MONO # 0.6 10^3/uL (0.0-0.8); MONO % 9.9 % (2.0-8.0); NEUTROPHILS # 3.4 10^3/uL (1.5-8.5); NEUTROPHILS % 53.6 % (36.0-66.0); PLATELET COUNT, AUTOMATED 242 10^3/uL (150-450); RED BLOOD COUNT 5.25 10^6/uL (4.30-6.10); WHITE BLOOD COUNT 6.4 10^3/uL (4.0-10.0)
[2021-03-24 14:09] LABS: C REACTIVE PROTEIN QUANTITATIV < 0.30 MG/DL (0.00-0.30); RHEUMATOID FACTOR QUANT < 10.0 IU/ML (<15.0)
[2021-03-24 14:19] LABS: ERYTHROCYTE SEDIMENTATION RATE 3 mm/hr (0-15)
[2021-03-25 15:09] LABS: ANTINUCLEAR ANTIBODIES DIRECT Negative (Negative); Lyme Disease IgG/IgM Antibodie <0.91 ISR (0.00-0.90); Lyme Disease IgM Ab Quantitati <0.80 index (0.00-0.79)
== END ==
LOC: M PLALAB 11:14
PROVIDERS: ATTEND Physician Assistant Surgical
DX: S43.51XD Sprain of right acromioclavicular joint, subsequent encounter (principal); X58.XXXA Exposure to other specified factors, initial encounter; Y92.9 Unspecified place or not applicable

== ENCOUNTER → 2021-06-17 | Outpatient (CLI) | payer OTHER, MEDICAID ==
[~2021-06-17] MED LIST changes: -QUET50TA3 PO; +QUET50TA4 PO
[2021-06-17 12:05] LABS: HEMATOCRIT 44.4 % (42.0-52.0); HEMOGLOBIN 15.2 g/dl (13.5-17.5); MEAN CORPUSCULAR HEMOGLOBIN 29.7 pg (27.0-33.0); MEAN CORPUSCULAR HGB CONC 34.2 g/dl (32.0-36.5); MEAN CORPUSCULAR VOLUME 86.7 fl (80.0-96.0); PLATELET COUNT, AUTOMATED 228 10^3/uL (150-450); RED BLOOD COUNT 5.12 10^6/uL (4.30-6.10); WHITE BLOOD COUNT 6.9 10^3/uL (4.0-10.0)
[2021-06-17 12:38] LABS: ALBUMIN 4.1 GM/DL (3.2-5.2); ALT/SGPT 34 U/L (12-78); BILIRUBIN,TOTAL 1.4 MG/DL (0.2-1.0); BLOOD UREA NITROGEN 12 MG/DL (7-18); CALCIUM LEVEL 9.3 MG/DL (8.5-10.1); CARBON DIOXIDE LEVEL 29 MEQ/L (21-32); CHLORIDE LEVEL 108 MEQ/L (98-107); CHOLESTEROL LEVEL 152 MG/DL (<200); CREATININE FOR GFR 0.98 MG/DL (0.70-1.30); GLOMERULAR FILTRATION RATE > 60.0 (>60); GLUCOSE, FASTING 84 MG/DL (70-100); HDL CHOLESTEROL 58 MG/DL (>40); LDL CHOLESTEROL 84 MG/DL (<100); NON-HDL-C 94 MG/DL; SODIUM LEVEL 141 MEQ/L (136-145); TOTAL PROTEIN 7.4 GM/DL (6.4-8.2); TRIGLYCERIDES LEVEL 51 MG/DL (<150)
== END ==
LOC: M LAB 11:05
PROVIDERS: ATTEND Family Medicine
DX: Z00.00 Encounter for general adult medical examination without abnormal findings (principal); Z79.899 Other long term (current) drug therapy

== ENCOUNTER → 2022-08-06 | Outpatient (REF) | payer MEDICAID | LOC: M LAB REF 17:58 | PROVIDERS: ATTEND Physician Assistant Medical | DX: J06.9 Acute upper respiratory infection, unspecified (principal); R05.9 Cough, unspecified ==

== ENCOUNTER → 2022-10-10 | Outpatient (CLI) | payer OTHER, MEDICAID ==
[~2022-10-10] MED LIST changes: -BENZ-52 PO; +BENZ1TAB5 PO
[2022-10-10 14:48] LABS: BASO # 0.1 10^3/uL (0.0-0.2); BASO % 0.6 % (0.0-1.0); EOS # 0.1 10^3/uL (0.0-0.5); EOS % 0.6 % (0.0-3.0); HEMATOCRIT 46.6 % (42.0-52.0); HEMOGLOBIN 15.3 g/dl (13.5-17.5); LYMPH # 2.2 10^3/uL (1.5-5.0); LYMPH % 22.3 % (24.0-44.0); MEAN CORPUSCULAR HEMOGLOBIN 28.8 pg (27.0-33.0); MEAN CORPUSCULAR HGB CONC 32.8 g/dl (32.0-36.5); MEAN CORPUSCULAR VOLUME 87.8 fl (80.0-96.0); MONO # 0.8 10^3/uL (0.0-0.8); MONO % 7.7 % (2.0-8.0); NEUTROPHILS # 6.6 10^3/uL (1.5-8.5); NEUTROPHILS % 68.4 % (36.0-66.0); PLATELET COUNT, AUTOMATED 278 10^3/uL (150-450); RED BLOOD COUNT 5.31 10^6/uL (4.30-6.10); WHITE BLOOD COUNT 9.7 10^3/uL (4.0-10.0)
[2022-10-10 15:06] LABS: THYROID STIMULATING HORMONE 0.693 uIU/ML (0.55-4.78); TOTAL 25(OH) VITAMIN D 31.2 NG/ML (20.0-100.0)
[2022-10-10 15:07] LABS: ALBUMIN 4.3 G/DL (3.2-5.2); ALKALINE PHOSPHATASE 96 U/L (46-116); ALT/SGPT 35 U/L (7.0-40); AST/SGOT < 8 U/L (<34); BILIRUBIN,DIRECT 0.3 MG/DL (<0.4); BILIRUBIN,TOTAL 0.9 MG/DL (0.3-1.2); BLOOD UREA NITROGEN 15 MG/DL (9-23); CALCIUM LEVEL 9.4 MG/DL (8.5-10.1); CARBON DIOXIDE LEVEL 29 MMOL/L (20-31); CHLORIDE LEVEL 107 MMOL/L (98-107); CHOLESTEROL LEVEL 178 MG/DL (<200); CHOLESTEROL RISK RATIO 3.23 (<5); CREATININE FOR GFR 0.96 MG/DL (0.70-1.30); GLOMERULAR FILTRATION RATE > 60.0 (>60); GLUCOSE, FASTING 97 MG/DL (60-100); LDL CHOLESTEROL 97.6 MG/DL (<100); NON-HDL-C 123 MG/DL; POTASSIUM SERUM 4.2 MMOL/L (3.5-5.1); SODIUM LEVEL 141 MMOL/L (136-145); TOTAL PROTEIN 7.1 G/DL (5.7-8.2); TRIGLYCERIDES LEVEL 127 MG/DL (<150)
[2022-10-10 15:50] LABS: HEMOGLOBIN A1c 4.7 % (4.0-6.0)
== END ==
LOC: M PLALAB 10:57
PROVIDERS: ATTEND Registered Nurse
DX: F31.2 Bipolar disorder, current episode manic severe with psychotic features (principal)

== ENCOUNTER → 2022-10-11 | Outpatient (CLI) | payer OTHER, MEDICAID | LOC: M EKG 12:00 | PROVIDERS: ATTEND Registered Nurse | DX: R00.0 Tachycardia, unspecified (principal); F31.2 Bipolar disorder, current episode manic severe with psychotic features; E55.9 Vitamin D deficiency, unspecified; Z51.81 Encounter for therapeutic drug level monitoring; Z79.899 Other long term (current) drug therapy; Z13.9 Encounter for screening, unspecified ==

== ENCOUNTER → 2022-10-31 | Outpatient (CLI) | payer OTHER, MEDICAID | LOC: M LAB 09:06 | PROVIDERS: ATTEND Registered Nurse | DX: F31.2 Bipolar disorder, current episode manic severe with psychotic features (principal); Z51.81 Encounter for therapeutic drug level monitoring; Z13.9 Encounter for screening, unspecified; Z79.899 Other long term (current) drug therapy ==

== ENCOUNTER → 2022-12-15 | Outpatient (CLI) | payer OTHER, MEDICAID | LOC: M LAB 10:21 | PROVIDERS: ATTEND Registered Nurse | DX: F31.2 Bipolar disorder, current episode manic severe with psychotic features (principal) ==

== ENCOUNTER → 2023-04-11 | Outpatient (CLI) | payer OTHER, MEDICAID ==
[2023-04-11 10:36] LABS: BASO # 0.1 10^3/uL (0.0-0.2); BASO % 0.9 % (0.0-1.0); EOS # 0.1 10^3/uL (0.0-0.5); EOS % 2.1 % (0.0-3.0); HEMATOCRIT 44.3 % (42.0-52.0); HEMOGLOBIN 14.9 g/dl (13.5-17.5); LYMPH # 2.1 10^3/uL (1.5-5.0); MEAN CORPUSCULAR HEMOGLOBIN 28.7 pg (27.0-33.0); MEAN CORPUSCULAR HGB CONC 33.6 g/dl (32.0-36.5); MEAN CORPUSCULAR VOLUME 85.4 fl (80.0-96.0); MONO # 0.6 10^3/uL (0.0-0.8); MONO % 8.1 % (2.0-8.0); NEUTROPHILS # 3.9 10^3/uL (1.5-8.5); NEUTROPHILS % 57.5 % (36.0-66.0); PLATELET COUNT, AUTOMATED 258 10^3/uL (150-450); RED BLOOD COUNT 5.19 10^6/uL (4.30-6.10); WHITE BLOOD COUNT 6.8 10^3/uL (4.0-10.0)
== END ==
LOC: M LAB 10:06
PROVIDERS: ATTEND Registered Nurse
DX: F31.2 Bipolar disorder, current episode manic severe with psychotic features (principal)

== ENCOUNTER → 2023-04-18 | Outpatient (CLI) | payer OTHER, MEDICAID ==
[2023-04-18 11:08] LABS: BASO # 0.1 10^3/uL (0.0-0.2); BASO % 0.8 % (0.0-1.0); EOS # 0.3 10^3/uL (0.0-0.5); EOS % 3.6 % (0.0-3.0); HEMOGLOBIN 14.5 g/dl (13.5-17.5); LYMPH % 25.4 % (24.0-44.0); MEAN CORPUSCULAR HEMOGLOBIN 28.2 pg (27.0-33.0); MEAN CORPUSCULAR VOLUME 85.4 fl (80.0-96.0); MONO # 0.5 10^3/uL (0.0-0.8); MONO % 6.7 % (2.0-8.0); NEUTROPHILS # 4.9 10^3/uL (1.5-8.5); NEUTROPHILS % 62.9 % (36.0-66.0); PLATELET COUNT, AUTOMATED 284 10^3/uL (150-450); RED BLOOD COUNT 5.15 10^6/uL (4.30-6.10); WHITE BLOOD COUNT 7.9 10^3/uL (4.0-10.0)
== END ==
LOC: M LAB 10:41
PROVIDERS: ATTEND Registered Nurse
DX: F31.2 Bipolar disorder, current episode manic severe with psychotic features (principal)

== ENCOUNTER → 2023-04-25 | Outpatient (CLI) | payer OTHER, MEDICAID ==
[2023-04-25 12:11] LABS: BASO # 0.1 10^3/uL (0.0-0.2); BASO % 0.8 % (0.0-1.0); EOS # 0.3 10^3/uL (0.0-0.5); EOS % 4.1 % (0.0-3.0); HEMATOCRIT 44.1 % (42.0-52.0); HEMOGLOBIN 14.9 g/dl (13.5-17.5); LYMPH # 2.6 10^3/uL (1.5-5.0); LYMPH % 32.2 % (24.0-44.0); MEAN CORPUSCULAR HEMOGLOBIN 28.7 pg (27.0-33.0); MEAN CORPUSCULAR HGB CONC 33.8 g/dl (32.0-36.5); MONO # 0.8 10^3/uL (0.0-0.8); MONO % 9.5 % (2.0-8.0); NEUTROPHILS # 4.2 10^3/uL (1.5-8.5); NEUTROPHILS % 52.4 % (36.0-66.0); PLATELET COUNT, AUTOMATED 283 10^3/uL (150-450); RED BLOOD COUNT 5.19 10^6/uL (4.30-6.10)
== END ==
LOC: M LAB 11:51
PROVIDERS: ATTEND Registered Nurse
DX: F31.2 Bipolar disorder, current episode manic severe with psychotic features (principal)

== ENCOUNTER → 2023-05-02 | Outpatient (CLI) | payer OTHER, MEDICAID ==
[2023-05-02 12:44] LABS: BASO # 0.1 10^3/uL (0.0-0.2); BASO % 0.8 % (0.0-1.0); EOS # 0.3 10^3/uL (0.0-0.5); EOS % 3.8 % (0.0-3.0); HEMATOCRIT 43.8 % (42.0-52.0); HEMOGLOBIN 14.8 g/dl (13.5-17.5); LYMPH # 2.3 10^3/uL (1.5-5.0); MEAN CORPUSCULAR HEMOGLOBIN 28.6 pg (27.0-33.0); MEAN CORPUSCULAR HGB CONC 33.8 g/dl (32.0-36.5); MEAN CORPUSCULAR VOLUME 84.7 fl (80.0-96.0); MONO # 0.7 10^3/uL (0.0-0.8); MONO % 9.7 % (2.0-8.0); NEUTROPHILS % 54.3 % (36.0-66.0); PLATELET COUNT, AUTOMATED 259 10^3/uL (150-450); RED BLOOD COUNT 5.17 10^6/uL (4.30-6.10); WHITE BLOOD COUNT 7.3 10^3/uL (4.0-10.0)
== END ==
LOC: M LAB 11:48
PROVIDERS: ATTEND Registered Nurse
DX: F31.2 Bipolar disorder, current episode manic severe with psychotic features (principal)

== ENCOUNTER → 2023-05-09 | Outpatient (CLI) | payer OTHER, MEDICAID ==
[2023-05-09 11:55] LABS: BASO % 0.6 % (0.0-1.0); EOS # 0.2 10^3/uL (0.0-0.5); EOS % 3.4 % (0.0-3.0); HEMATOCRIT 44.8 % (42.0-52.0); LYMPH % 32.6 % (24.0-44.0); MEAN CORPUSCULAR HEMOGLOBIN 28.4 pg (27.0-33.0); MEAN CORPUSCULAR HGB CONC 33.5 g/dl (32.0-36.5); MEAN CORPUSCULAR VOLUME 84.8 fl (80.0-96.0); MONO # 0.5 10^3/uL (0.0-0.8); MONO % 7.9 % (2.0-8.0); NEUTROPHILS # 3.4 10^3/uL (1.5-8.5); PLATELET COUNT, AUTOMATED 285 10^3/uL (150-450); RED BLOOD COUNT 5.28 10^6/uL (4.30-6.10); WHITE BLOOD COUNT 6.2 10^3/uL (4.0-10.0)
== END ==
LOC: M LAB 10:31
PROVIDERS: ATTEND Registered Nurse
DX: F31.2 Bipolar disorder, current episode manic severe with psychotic features (principal)

== ENCOUNTER → 2023-05-16 | Outpatient (CLI) | payer OTHER, MEDICAID ==
[2023-05-16 11:20] LABS: BASO # 0.1 10^3/uL (0.0-0.2); BASO % 0.9 % (0.0-1.0); EOS # 0.2 10^3/uL (0.0-0.5); EOS % 3.3 % (0.0-3.0); HEMOGLOBIN 14.8 g/dl (13.5-17.5); LYMPH # 2.2 10^3/uL (1.5-5.0); MEAN CORPUSCULAR HEMOGLOBIN 28.4 pg (27.0-33.0); MEAN CORPUSCULAR HGB CONC 33.6 g/dl (32.0-36.5); MEAN CORPUSCULAR VOLUME 84.5 fl (80.0-96.0); MONO # 0.7 10^3/uL (0.0-0.8); MONO % 10.1 % (2.0-8.0); NEUTROPHILS # 3.7 10^3/uL (1.5-8.5); NEUTROPHILS % 53.3 % (36.0-66.0); PLATELET COUNT, AUTOMATED 243 10^3/uL (150-450); RED BLOOD COUNT 5.21 10^6/uL (4.30-6.10); WHITE BLOOD COUNT 6.9 10^3/uL (4.0-10.0)
== END ==
LOC: M LAB 10:38
PROVIDERS: ATTEND Registered Nurse
DX: F31.2 Bipolar disorder, current episode manic severe with psychotic features (principal)

== ENCOUNTER → 2023-05-30 | Outpatient (CLI) | payer OTHER, MEDICAID ==
[2023-05-30 12:14] LABS: BASO # 0.1 10^3/uL (0.0-0.2); BASO % 0.7 % (0.0-1.0); EOS # 0.3 10^3/uL (0.0-0.5); EOS % 3.8 % (0.0-3.0); HEMATOCRIT 43.3 % (42.0-52.0); HEMOGLOBIN 14.9 g/dl (13.5-17.5); LYMPH # 2.2 10^3/uL (1.5-5.0); LYMPH % 30.8 % (24.0-44.0); MEAN CORPUSCULAR HGB CONC 34.4 g/dl (32.0-36.5); MEAN CORPUSCULAR VOLUME 84.2 fl (80.0-96.0); MONO # 0.7 10^3/uL (0.0-0.8); MONO % 9.6 % (2.0-8.0); NEUTROPHILS # 3.9 10^3/uL (1.5-8.5); NEUTROPHILS % 54.5 % (36.0-66.0); PLATELET COUNT, AUTOMATED 265 10^3/uL (150-450); RED BLOOD COUNT 5.14 10^6/uL (4.30-6.10); WHITE BLOOD COUNT 7.2 10^3/uL (4.0-10.0)
== END ==
LOC: M LAB 11:31
PROVIDERS: ATTEND Registered Nurse
DX: F31.2 Bipolar disorder, current episode manic severe with psychotic features (principal)

== ENCOUNTER → 2023-06-06 | Outpatient (CLI) | payer OTHER, MEDICAID ==
[2023-06-06 12:17] LABS: BASO % 0.5 % (0.0-1.0); EOS # 0.2 10^3/uL (0.0-0.5); EOS % 3.3 % (0.0-3.0); HEMATOCRIT 42.3 % (42.0-52.0); HEMOGLOBIN 14.5 g/dl (13.5-17.5); LYMPH # 1.9 10^3/uL (1.5-5.0); LYMPH % 31.3 % (24.0-44.0); MEAN CORPUSCULAR HEMOGLOBIN 28.9 pg (27.0-33.0); MEAN CORPUSCULAR HGB CONC 34.3 g/dl (32.0-36.5); MEAN CORPUSCULAR VOLUME 84.4 fl (80.0-96.0); MONO # 0.6 10^3/uL (0.0-0.8); MONO % 9.9 % (2.0-8.0); NEUTROPHILS # 3.3 10^3/uL (1.5-8.5); NEUTROPHILS % 54.5 % (36.0-66.0); PLATELET COUNT, AUTOMATED 255 10^3/uL (150-450); RED BLOOD COUNT 5.01 10^6/uL (4.30-6.10); WHITE BLOOD COUNT 6.1 10^3/uL (4.0-10.0)
== END ==
LOC: M LAB 10:38
PROVIDERS: ATTEND Registered Nurse
DX: F31.2 Bipolar disorder, current episode manic severe with psychotic features (principal)

== ENCOUNTER → 2023-06-20 | Outpatient (CLI) | payer OTHER, MEDICAID ==
[2023-06-20 12:39] LABS: BASO # 0.1 10^3/uL (0.0-0.2); BASO % 0.8 % (0.0-1.0); EOS # 0.2 10^3/uL (0.0-0.5); EOS % 2.3 % (0.0-3.0); HEMATOCRIT 43.3 % (42.0-52.0); HEMOGLOBIN 14.6 g/dl (13.5-17.5); MEAN CORPUSCULAR HEMOGLOBIN 28.4 pg (27.0-33.0); MEAN CORPUSCULAR HGB CONC 33.7 g/dl (32.0-36.5); MEAN CORPUSCULAR VOLUME 84.2 fl (80.0-96.0); MONO # 0.7 10^3/uL (0.0-0.8); MONO % 9.5 % (2.0-8.0); NEUTROPHILS # 4.2 10^3/uL (1.5-8.5); NEUTROPHILS % 58.6 % (36.0-66.0); PLATELET COUNT, AUTOMATED 288 10^3/uL (150-450); RED BLOOD COUNT 5.14 10^6/uL (4.30-6.10); WHITE BLOOD COUNT 7.3 10^3/uL (4.0-10.0)
== END ==
LOC: M LAB 11:14
PROVIDERS: ATTEND Registered Nurse
DX: F31.2 Bipolar disorder, current episode manic severe with psychotic features (principal)

== ENCOUNTER → 2023-06-27 | Outpatient (CLI) | payer OTHER, MEDICAID ==
[2023-06-27 13:32] LABS: BASO # 0.1 10^3/uL (0.0-0.2); BASO % 0.7 % (0.0-1.0); EOS # 0.2 10^3/uL (0.0-0.5); EOS % 2.6 % (0.0-3.0); HEMATOCRIT 43.9 % (42.0-52.0); HEMOGLOBIN 14.9 g/dl (13.5-17.5); MEAN CORPUSCULAR HEMOGLOBIN 28.6 pg (27.0-33.0); MEAN CORPUSCULAR HGB CONC 33.9 g/dl (32.0-36.5); MEAN CORPUSCULAR VOLUME 84.3 fl (80.0-96.0); MONO # 0.8 10^3/uL (0.0-0.8); MONO % 9.3 % (2.0-8.0); NEUTROPHILS % 61.9 % (36.0-66.0); PLATELET COUNT, AUTOMATED 282 10^3/uL (150-450); RED BLOOD COUNT 5.21 10^6/uL (4.30-6.10); WHITE BLOOD COUNT 8.1 10^3/uL (4.0-10.0)
== END ==
LOC: M LAB 12:08
PROVIDERS: ATTEND Registered Nurse
DX: F31.2 Bipolar disorder, current episode manic severe with psychotic features (principal)

== ENCOUNTER → 2023-07-04 | Outpatient (CLI) | payer MEDICAID ==
[2023-07-04 11:44] LABS: BASO # 0.1 10^3/uL (0.0-0.2); BASO % 0.9 % (0.0-1.0); EOS # 0.2 10^3/uL (0.0-0.5); HEMATOCRIT 43.3 % (42.0-52.0); HEMOGLOBIN 14.7 g/dl (13.5-17.5); LYMPH # 2.1 10^3/uL (1.5-5.0); LYMPH % 29.5 % (24.0-44.0); MEAN CORPUSCULAR HEMOGLOBIN 28.7 pg (27.0-33.0); MEAN CORPUSCULAR HGB CONC 33.9 g/dl (32.0-36.5); MEAN CORPUSCULAR VOLUME 84.4 fl (80.0-96.0); MONO # 0.7 10^3/uL (0.0-0.8); MONO % 10.2 % (2.0-8.0); NEUTROPHILS # 3.9 10^3/uL (1.5-8.5); NEUTROPHILS % 55.8 % (36.0-66.0); PLATELET COUNT, AUTOMATED 287 10^3/uL (150-450); RED BLOOD COUNT 5.13 10^6/uL (4.30-6.10); WHITE BLOOD COUNT 6.9 10^3/uL (4.0-10.0)
== END ==
LOC: M LAB 11:03
PROVIDERS: ATTEND Registered Nurse
DX: F31.2 Bipolar disorder, current episode manic severe with psychotic features (principal)

== ENCOUNTER → 2023-07-11 | Outpatient (CLI) | payer OTHER, MEDICAID ==
[2023-07-11 11:52] LABS: BASO # 0.1 10^3/uL (0.0-0.2); BASO % 0.7 % (0.0-1.0); EOS # 0.3 10^3/uL (0.0-0.5); HEMATOCRIT 43.1 % (42.0-52.0); HEMOGLOBIN 14.8 g/dl (13.5-17.5); LYMPH # 2.3 10^3/uL (1.5-5.0); LYMPH % 32.2 % (24.0-44.0); MEAN CORPUSCULAR HGB CONC 34.3 g/dl (32.0-36.5); MEAN CORPUSCULAR VOLUME 84.5 fl (80.0-96.0); MONO # 0.7 10^3/uL (0.0-0.8); MONO % 9.7 % (2.0-8.0); NEUTROPHILS # 3.7 10^3/uL (1.5-8.5); NEUTROPHILS % 52.8 % (36.0-66.0); PLATELET COUNT, AUTOMATED 269 10^3/uL (150-450)
== END ==
LOC: M LAB 11:14
PROVIDERS: ATTEND Registered Nurse
DX: F31.2 Bipolar disorder, current episode manic severe with psychotic features (principal)

== ENCOUNTER → 2023-07-18 | Outpatient (CLI) | payer OTHER, MEDICAID ==
[2023-07-18 14:04] LABS: BASO # 0.1 10^3/uL (0.0-0.2); BASO % 0.6 % (0.0-1.0); EOS # 0.3 10^3/uL (0.0-0.5); EOS % 3.2 % (0.0-3.0); LYMPH # 2.2 10^3/uL (1.5-5.0); LYMPH % 25.3 % (24.0-44.0); MEAN CORPUSCULAR HEMOGLOBIN 29.1 pg (27.0-33.0); MEAN CORPUSCULAR HGB CONC 34.9 g/dl (32.0-36.5); MEAN CORPUSCULAR VOLUME 83.5 fl (80.0-96.0); MONO # 0.6 10^3/uL (0.0-0.8); MONO % 6.9 % (2.0-8.0); NEUTROPHILS # 5.6 10^3/uL (1.5-8.5); NEUTROPHILS % 63.5 % (36.0-66.0); PLATELET COUNT, AUTOMATED 273 10^3/uL (150-450); RED BLOOD COUNT 5.15 10^6/uL (4.30-6.10); WHITE BLOOD COUNT 8.7 10^3/uL (4.0-10.0)
== END ==
LOC: M LAB 13:38
PROVIDERS: ATTEND Registered Nurse
DX: F31.2 Bipolar disorder, current episode manic severe with psychotic features (principal)

== ENCOUNTER → 2023-07-25 | Outpatient (CLI) | payer OTHER, MEDICAID ==
[2023-07-25 11:42] LABS: BASO % 0.4 % (0.0-1.0); EOS # 0.2 10^3/uL (0.0-0.5); EOS % 2.6 % (0.0-3.0); HEMATOCRIT 42.8 % (42.0-52.0); HEMOGLOBIN 14.6 g/dl (13.5-17.5); MEAN CORPUSCULAR HEMOGLOBIN 28.6 pg (27.0-33.0); MEAN CORPUSCULAR HGB CONC 34.1 g/dl (32.0-36.5); MEAN CORPUSCULAR VOLUME 83.8 fl (80.0-96.0); MONO # 0.8 10^3/uL (0.0-0.8); MONO % 8.8 % (2.0-8.0); NEUTROPHILS # 6.1 10^3/uL (1.5-8.5); NEUTROPHILS % 65.7 % (36.0-66.0); PLATELET COUNT, AUTOMATED 276 10^3/uL (150-450); RED BLOOD COUNT 5.11 10^6/uL (4.30-6.10); WHITE BLOOD COUNT 9.2 10^3/uL (4.0-10.0)
== END ==
LOC: M LAB 10:51
PROVIDERS: ATTEND Registered Nurse
DX: F31.2 Bipolar disorder, current episode manic severe with psychotic features (principal)

== ENCOUNTER → 2023-08-01 | Outpatient (CLI) | payer OTHER, MEDICAID ==
[2023-08-01 12:05] LABS: BASO # 0.1 10^3/uL (0.0-0.2); BASO % 0.9 % (0.0-1.0); EOS # 0.3 10^3/uL (0.0-0.5); EOS % 4.1 % (0.0-3.0); HEMATOCRIT 43.3 % (42.0-52.0); HEMOGLOBIN 14.6 g/dl (13.5-17.5); LYMPH # 2.1 10^3/uL (1.5-5.0); LYMPH % 31.1 % (24.0-44.0); MEAN CORPUSCULAR HEMOGLOBIN 28.5 pg (27.0-33.0); MEAN CORPUSCULAR HGB CONC 33.7 g/dl (32.0-36.5); MEAN CORPUSCULAR VOLUME 84.4 fl (80.0-96.0); MONO # 0.6 10^3/uL (0.0-0.8); MONO % 8.4 % (2.0-8.0); NEUTROPHILS # 3.8 10^3/uL (1.5-8.5); NEUTROPHILS % 54.9 % (36.0-66.0); PLATELET COUNT, AUTOMATED 304 10^3/uL (150-450); RED BLOOD COUNT 5.13 10^6/uL (4.30-6.10); WHITE BLOOD COUNT 6.9 10^3/uL (4.0-10.0)
== END ==
LOC: M LAB 11:06
PROVIDERS: ATTEND Registered Nurse
DX: F31.2 Bipolar disorder, current episode manic severe with psychotic features (principal)

== ENCOUNTER → 2023-08-08 | Outpatient (CLI) | payer OTHER, MEDICAID ==
[2023-08-08 12:09] LABS: BASO % 0.6 % (0.0-1.0); EOS # 0.2 10^3/uL (0.0-0.5); EOS % 3.2 % (0.0-3.0); HEMATOCRIT 43.2 % (42.0-52.0); HEMOGLOBIN 14.6 g/dl (13.5-17.5); LYMPH # 2.2 10^3/uL (1.5-5.0); LYMPH % 33.1 % (24.0-44.0); MEAN CORPUSCULAR HEMOGLOBIN 28.6 pg (27.0-33.0); MEAN CORPUSCULAR HGB CONC 33.8 g/dl (32.0-36.5); MEAN CORPUSCULAR VOLUME 84.5 fl (80.0-96.0); MONO # 0.6 10^3/uL (0.0-0.8); MONO % 9.3 % (2.0-8.0); NEUTROPHILS # 3.5 10^3/uL (1.5-8.5); NEUTROPHILS % 53.3 % (36.0-66.0); PLATELET COUNT, AUTOMATED 275 10^3/uL (150-450); RED BLOOD COUNT 5.11 10^6/uL (4.30-6.10); WHITE BLOOD COUNT 6.6 10^3/uL (4.0-10.0)
== END ==
LOC: M LAB 11:15
PROVIDERS: ATTEND Registered Nurse
DX: F31.2 Bipolar disorder, current episode manic severe with psychotic features (principal)

== ENCOUNTER → 2023-08-15 | Outpatient (CLI) | payer OTHER, MEDICAID ==
[2023-08-15 13:18] LABS: BASO # 0.1 10^3/uL (0.0-0.2); BASO % 0.7 % (0.0-1.0); EOS # 0.2 10^3/uL (0.0-0.5); EOS % 2.7 % (0.0-3.0); HEMOGLOBIN 14.3 g/dl (13.5-17.5); LYMPH # 2.3 10^3/uL (1.5-5.0); LYMPH % 31.2 % (24.0-44.0); MEAN CORPUSCULAR HEMOGLOBIN 28.5 pg (27.0-33.0); MEAN CORPUSCULAR VOLUME 83.8 fl (80.0-96.0); MONO # 0.8 10^3/uL (0.0-0.8); MONO % 11.3 % (2.0-8.0); NEUTROPHILS % 53.6 % (36.0-66.0); PLATELET COUNT, AUTOMATED 266 10^3/uL (150-450); RED BLOOD COUNT 5.01 10^6/uL (4.30-6.10); WHITE BLOOD COUNT 7.4 10^3/uL (4.0-10.0)
== END ==
LOC: M LAB 12:30
PROVIDERS: ATTEND Registered Nurse
DX: F31.2 Bipolar disorder, current episode manic severe with psychotic features (principal)

== ENCOUNTER → 2023-08-22 | Outpatient (CLI) | payer OTHER, MEDICAID ==
[2023-08-22 13:42] LABS: BASO % 0.5 % (0.0-1.0); EOS # 0.2 10^3/uL (0.0-0.5); HEMATOCRIT 42.3 % (42.0-52.0); LYMPH # 2.3 10^3/uL (1.5-5.0); LYMPH % 30.8 % (24.0-44.0); MEAN CORPUSCULAR HGB CONC 33.1 g/dl (32.0-36.5); MEAN CORPUSCULAR VOLUME 84.6 fl (80.0-96.0); MONO # 0.5 10^3/uL (0.0-0.8); MONO % 6.1 % (2.0-8.0); NEUTROPHILS # 4.5 10^3/uL (1.5-8.5); NEUTROPHILS % 60.1 % (36.0-66.0); PLATELET COUNT, AUTOMATED 263 10^3/uL (150-450); WHITE BLOOD COUNT 7.5 10^3/uL (4.0-10.0)
== END ==
LOC: M LAB 13:04
PROVIDERS: ATTEND Registered Nurse
DX: F31.2 Bipolar disorder, current episode manic severe with psychotic features (principal)

== ENCOUNTER → 2023-08-29 | Outpatient (CLI) | payer OTHER, MEDICAID ==
[2023-08-29 12:43] LABS: BASO # 0.1 10^3/uL (0.0-0.2); BASO % 0.7 % (0.0-1.0); EOS # 0.2 10^3/uL (0.0-0.5); EOS % 2.7 % (0.0-3.0); HEMATOCRIT 42.1 % (42.0-52.0); HEMOGLOBIN 14.2 g/dl (13.5-17.5); LYMPH # 2.2 10^3/uL (1.5-5.0); LYMPH % 29.8 % (24.0-44.0); MEAN CORPUSCULAR HEMOGLOBIN 28.2 pg (27.0-33.0); MEAN CORPUSCULAR HGB CONC 33.7 g/dl (32.0-36.5); MEAN CORPUSCULAR VOLUME 83.7 fl (80.0-96.0); MONO # 0.7 10^3/uL (0.0-0.8); NEUTROPHILS # 4.1 10^3/uL (1.5-8.5); NEUTROPHILS % 56.4 % (36.0-66.0); PLATELET COUNT, AUTOMATED 272 10^3/uL (150-450); RED BLOOD COUNT 5.03 10^6/uL (4.30-6.10); WHITE BLOOD COUNT 7.3 10^3/uL (4.0-10.0)
== END ==
LOC: M LAB 12:04
PROVIDERS: ATTEND Registered Nurse
DX: F31.2 Bipolar disorder, current episode manic severe with psychotic features (principal)

== ENCOUNTER → 2023-09-05 | Outpatient (CLI) | payer OTHER, MEDICAID ==
[2023-09-05 11:53] LABS: BASO # 0.1 10^3/uL (0.0-0.2); BASO % 0.8 % (0.0-1.0); EOS # 0.2 10^3/uL (0.0-0.5); HEMATOCRIT 42.1 % (42.0-52.0); HEMOGLOBIN 14.3 g/dl (13.5-17.5); LYMPH # 2.5 10^3/uL (1.5-5.0); LYMPH % 35.2 % (24.0-44.0); MEAN CORPUSCULAR HEMOGLOBIN 28.3 pg (27.0-33.0); MEAN CORPUSCULAR VOLUME 83.4 fl (80.0-96.0); MONO # 0.7 10^3/uL (0.0-0.8); MONO % 10.3 % (2.0-8.0); NEUTROPHILS # 3.6 10^3/uL (1.5-8.5); NEUTROPHILS % 50.3 % (36.0-66.0); PLATELET COUNT, AUTOMATED 268 10^3/uL (150-450); RED BLOOD COUNT 5.05 10^6/uL (4.30-6.10); WHITE BLOOD COUNT 7.1 10^3/uL (4.0-10.0)
== END ==
LOC: M LAB 11:32
PROVIDERS: ATTEND Registered Nurse
DX: F31.2 Bipolar disorder, current episode manic severe with psychotic features (principal)

== ENCOUNTER → 2023-09-13 | Outpatient (CLI) | payer OTHER, MEDICAID ==
[2023-09-13 12:57] LABS: BASO # 0.1 10^3/uL (0.0-0.2); EOS # 0.2 10^3/uL (0.0-0.5); EOS % 3.4 % (0.0-3.0); HEMATOCRIT 41.5 % (42.0-52.0); HEMOGLOBIN 13.9 g/dl (13.5-17.5); LYMPH % 33.4 % (24.0-44.0); MEAN CORPUSCULAR HEMOGLOBIN 28.1 pg (27.0-33.0); MEAN CORPUSCULAR HGB CONC 33.5 g/dl (32.0-36.5); MEAN CORPUSCULAR VOLUME 83.8 fl (80.0-96.0); MONO # 0.6 10^3/uL (0.0-0.8); MONO % 10.2 % (2.0-8.0); NEUTROPHILS # 3.1 10^3/uL (1.5-8.5); NEUTROPHILS % 51.5 % (36.0-66.0); PLATELET COUNT, AUTOMATED 244 10^3/uL (150-450); RED BLOOD COUNT 4.95 10^6/uL (4.30-6.10); WHITE BLOOD COUNT 6.1 10^3/uL (4.0-10.0)
== END ==
LOC: M LAB 12:12
PROVIDERS: ATTEND Registered Nurse
DX: F31.2 Bipolar disorder, current episode manic severe with psychotic features (principal)

== ENCOUNTER → 2023-09-19 | Outpatient (CLI) | payer OTHER, MEDICAID ==
[2023-09-19 11:57] LABS: BASO # 0.1 10^3/uL (0.0-0.2); BASO % 0.8 % (0.0-1.0); EOS # 0.2 10^3/uL (0.0-0.5); EOS % 2.8 % (0.0-3.0); HEMATOCRIT 42.8 % (42.0-52.0); HEMOGLOBIN 14.6 g/dl (13.5-17.5); LYMPH # 2.2 10^3/uL (1.5-5.0); LYMPH % 29.5 % (24.0-44.0); MEAN CORPUSCULAR HEMOGLOBIN 28.5 pg (27.0-33.0); MEAN CORPUSCULAR HGB CONC 34.1 g/dl (32.0-36.5); MEAN CORPUSCULAR VOLUME 83.6 fl (80.0-96.0); MONO # 0.6 10^3/uL (0.0-0.8); MONO % 8.4 % (2.0-8.0); NEUTROPHILS # 4.3 10^3/uL (1.5-8.5); NEUTROPHILS % 58.1 % (36.0-66.0); PLATELET COUNT, AUTOMATED 259 10^3/uL (150-450); RED BLOOD COUNT 5.12 10^6/uL (4.30-6.10); WHITE BLOOD COUNT 7.5 10^3/uL (4.0-10.0)
== END ==
LOC: M LAB 10:51
PROVIDERS: ATTEND Registered Nurse
DX: F31.2 Bipolar disorder, current episode manic severe with psychotic features (principal)

== ENCOUNTER → 2023-09-26 | Outpatient (CLI) | payer OTHER, MEDICAID ==
[2023-09-26 13:48] LABS: BASO # 0.1 10^3/uL (0.0-0.2); BASO % 0.8 % (0.0-1.0); EOS # 0.2 10^3/uL (0.0-0.5); EOS % 2.4 % (0.0-3.0); HEMATOCRIT 42.4 % (42.0-52.0); HEMOGLOBIN 14.5 g/dl (13.5-17.5); LYMPH # 2.1 10^3/uL (1.5-5.0); MEAN CORPUSCULAR HEMOGLOBIN 28.4 pg (27.0-33.0); MEAN CORPUSCULAR HGB CONC 34.2 g/dl (32.0-36.5); MONO # 0.6 10^3/uL (0.0-0.8); MONO % 9.3 % (2.0-8.0); NEUTROPHILS # 3.7 10^3/uL (1.5-8.5); NEUTROPHILS % 55.2 % (36.0-66.0); PLATELET COUNT, AUTOMATED 276 10^3/uL (150-450); RED BLOOD COUNT 5.11 10^6/uL (4.30-6.10); WHITE BLOOD COUNT 6.7 10^3/uL (4.0-10.0)
== END ==
LOC: M LAB 13:23
PROVIDERS: ATTEND Registered Nurse
DX: F31.9 Bipolar disorder, unspecified (principal)

== ENCOUNTER → 2023-10-03 | Outpatient (CLI) | payer OTHER, MEDICAID ==
[2023-10-03 16:07] LABS: BASO # 0.1 10^3/uL (0.0-0.2); BASO % 0.6 % (0.0-1.0); EOS # 0.2 10^3/uL (0.0-0.5); EOS % 1.9 % (0.0-3.0); HEMATOCRIT 43.2 % (42.0-52.0); HEMOGLOBIN 14.7 g/dl (13.5-17.5); LYMPH # 2.1 10^3/uL (1.5-5.0); LYMPH % 26.4 % (24.0-44.0); MEAN CORPUSCULAR HEMOGLOBIN 28.4 pg (27.0-33.0); MEAN CORPUSCULAR VOLUME 83.4 fl (80.0-96.0); MONO # 0.6 10^3/uL (0.0-0.8); MONO % 7.4 % (2.0-8.0); NEUTROPHILS % 63.3 % (36.0-66.0); PLATELET COUNT, AUTOMATED 263 10^3/uL (150-450); RED BLOOD COUNT 5.18 10^6/uL (4.30-6.10); WHITE BLOOD COUNT 7.9 10^3/uL (4.0-10.0)
== END ==
LOC: M LAB 15:31
PROVIDERS: ATTEND Registered Nurse
DX: F31.2 Bipolar disorder, current episode manic severe with psychotic features (principal)

== ENCOUNTER → 2023-10-10 | Outpatient (CLI) | payer OTHER, MEDICAID ==
[2023-10-10 12:40] LABS: BASO % 0.4 % (0.0-1.0); EOS # 0.2 10^3/uL (0.0-0.5); EOS % 2.4 % (0.0-3.0); HEMATOCRIT 42.9 % (42.0-52.0); HEMOGLOBIN 14.5 g/dl (13.5-17.5); LYMPH # 2.4 10^3/uL (1.5-5.0); LYMPH % 32.8 % (24.0-44.0); MEAN CORPUSCULAR HEMOGLOBIN 28.3 pg (27.0-33.0); MEAN CORPUSCULAR HGB CONC 33.8 g/dl (32.0-36.5); MEAN CORPUSCULAR VOLUME 83.8 fl (80.0-96.0); MONO # 0.7 10^3/uL (0.0-0.8); MONO % 9.7 % (2.0-8.0); NEUTROPHILS # 3.9 10^3/uL (1.5-8.5); NEUTROPHILS % 54.3 % (36.0-66.0); PLATELET COUNT, AUTOMATED 264 10^3/uL (150-450); RED BLOOD COUNT 5.12 10^6/uL (4.30-6.10); WHITE BLOOD COUNT 7.2 10^3/uL (4.0-10.0)
== END ==
LOC: M LAB 12:05
PROVIDERS: ATTEND Registered Nurse
DX: F31.2 Bipolar disorder, current episode manic severe with psychotic features (principal)

== ENCOUNTER → 2023-10-17 | Outpatient (CLI) | payer OTHER, MEDICAID ==
[2023-10-17 12:28] LABS: BASO % 0.5 % (0.0-1.0); EOS # 0.2 10^3/uL (0.0-0.5); EOS % 2.2 % (0.0-3.0); HEMATOCRIT 43.4 % (42.0-52.0); HEMOGLOBIN 14.8 g/dl (13.5-17.5); LYMPH # 2.4 10^3/uL (1.5-5.0); LYMPH % 30.5 % (24.0-44.0); MEAN CORPUSCULAR HEMOGLOBIN 28.2 pg (27.0-33.0); MEAN CORPUSCULAR HGB CONC 34.1 g/dl (32.0-36.5); MEAN CORPUSCULAR VOLUME 82.7 fl (80.0-96.0); MONO # 0.7 10^3/uL (0.0-0.8); MONO % 9.4 % (2.0-8.0); NEUTROPHILS # 4.5 10^3/uL (1.5-8.5); NEUTROPHILS % 57.1 % (36.0-66.0); PLATELET COUNT, AUTOMATED 286 10^3/uL (150-450); RED BLOOD COUNT 5.25 10^6/uL (4.30-6.10); WHITE BLOOD COUNT 7.8 10^3/uL (4.0-10.0)
== END ==
LOC: M LAB 11:37
PROVIDERS: ATTEND Registered Nurse
DX: F31.2 Bipolar disorder, current episode manic severe with psychotic features (principal)

== ENCOUNTER → 2023-10-31 | Outpatient (CLI) | payer OTHER, MEDICAID ==
[2023-10-31 12:49] LABS: BASO % 0.5 % (0.0-1.0); EOS # 0.2 10^3/uL (0.0-0.5); HEMATOCRIT 42.2 % (42.0-52.0); HEMOGLOBIN 14.5 g/dl (13.5-17.5); LYMPH # 2.3 10^3/uL (1.5-5.0); LYMPH % 30.8 % (24.0-44.0); MEAN CORPUSCULAR HEMOGLOBIN 28.5 pg (27.0-33.0); MEAN CORPUSCULAR HGB CONC 34.4 g/dl (32.0-36.5); MEAN CORPUSCULAR VOLUME 83.1 fl (80.0-96.0); MONO # 0.6 10^3/uL (0.0-0.8); MONO % 7.8 % (2.0-8.0); NEUTROPHILS # 4.2 10^3/uL (1.5-8.5); NEUTROPHILS % 57.4 % (36.0-66.0); PLATELET COUNT, AUTOMATED 247 10^3/uL (150-450); RED BLOOD COUNT 5.08 10^6/uL (4.30-6.10); WHITE BLOOD COUNT 7.3 10^3/uL (4.0-10.0)
== END ==
LOC: M LAB 12:01
PROVIDERS: ATTEND Registered Nurse
DX: F31.2 Bipolar disorder, current episode manic severe with psychotic features (principal)

== ENCOUNTER → 2023-11-14 | Outpatient (CLI) | payer OTHER, MEDICAID ==
[2023-11-14 12:39] LABS: BASO % 0.6 % (0.0-1.0); EOS # 0.2 10^3/uL (0.0-0.5); EOS % 2.8 % (0.0-3.0); HEMATOCRIT 42.4 % (42.0-52.0); HEMOGLOBIN 14.4 g/dl (13.5-17.5); LYMPH # 2.2 10^3/uL (1.5-5.0); LYMPH % 32.9 % (24.0-44.0); MEAN CORPUSCULAR VOLUME 82.5 fl (80.0-96.0); MONO # 0.6 10^3/uL (0.0-0.8); NEUTROPHILS # 3.5 10^3/uL (1.5-8.5); NEUTROPHILS % 54.2 % (36.0-66.0); PLATELET COUNT, AUTOMATED 285 10^3/uL (150-450); RED BLOOD COUNT 5.14 10^6/uL (4.30-6.10); WHITE BLOOD COUNT 6.5 10^3/uL (4.0-10.0)
== END ==
LOC: M LAB 11:36
PROVIDERS: ATTEND Registered Nurse
DX: F31.2 Bipolar disorder, current episode manic severe with psychotic features (principal)

== ENCOUNTER → 2023-11-28 | Outpatient (CLI) | payer OTHER, MEDICAID ==
[2023-11-28 10:44] LABS: BASO % 0.5 % (0.0-1.0); EOS # 0.1 10^3/uL (0.0-0.5); EOS % 1.9 % (0.0-3.0); HEMATOCRIT 41.8 % (42.0-52.0); HEMOGLOBIN 14.3 g/dl (13.5-17.5); LYMPH # 2.2 10^3/uL (1.5-5.0); LYMPH % 28.7 % (24.0-44.0); MEAN CORPUSCULAR HEMOGLOBIN 28.4 pg (27.0-33.0); MEAN CORPUSCULAR HGB CONC 34.2 g/dl (32.0-36.5); MEAN CORPUSCULAR VOLUME 82.9 fl (80.0-96.0); MONO # 0.6 10^3/uL (0.0-0.8); MONO % 8.5 % (2.0-8.0); NEUTROPHILS # 4.5 10^3/uL (1.5-8.5); NEUTROPHILS % 59.6 % (36.0-66.0); PLATELET COUNT, AUTOMATED 315 10^3/uL (150-450); RED BLOOD COUNT 5.04 10^6/uL (4.30-6.10); WHITE BLOOD COUNT 7.5 10^3/uL (4.0-10.0)
== END ==
LOC: M LAB 10:12
PROVIDERS: ATTEND Registered Nurse
DX: F31.2 Bipolar disorder, current episode manic severe with psychotic features (principal)

== ENCOUNTER → 2023-12-18 | Outpatient (CLI) | payer OTHER, MEDICAID ==
[2023-12-18 15:50] LABS: BASO % 0.5 % (0.0-1.0); EOS # 0.1 10^3/uL (0.0-0.5); EOS % 1.1 % (0.0-3.0); HEMATOCRIT 45.8 % (42.0-52.0); HEMOGLOBIN 15.1 g/dl (13.5-17.5); LYMPH # 1.9 10^3/uL (1.5-5.0); LYMPH % 25.7 % (24.0-44.0); MEAN CORPUSCULAR HEMOGLOBIN 28.1 pg (27.0-33.0); MEAN CORPUSCULAR VOLUME 85.1 fl (80.0-96.0); MONO # 0.7 10^3/uL (0.0-0.8); MONO % 8.9 % (2.0-8.0); NEUTROPHILS # 4.7 10^3/uL (1.5-8.5); NEUTROPHILS % 63.4 % (36.0-66.0); PLATELET COUNT, AUTOMATED 289 10^3/uL (150-450); RED BLOOD COUNT 5.38 10^6/uL (4.30-6.10); WHITE BLOOD COUNT 7.3 10^3/uL (4.0-10.0)
[2023-12-18 15:57] LABS: ALBUMIN 4.4 G/DL (3.2-5.2); ALKALINE PHOSPHATASE 115 U/L (46-116); ALT/SGPT 39 U/L (7.0-40); AST/SGOT 25 U/L (<34); BILIRUBIN,TOTAL 1.2 MG/DL (0.3-1.2); BLOOD UREA NITROGEN 15 MG/DL (9-23); CALCIUM LEVEL 10.2 MG/DL (8.5-10.1); CARBON DIOXIDE LEVEL 29 MMOL/L (20-31); CHLORIDE LEVEL 104 MMOL/L (98-107); CREATININE FOR GFR 0.94 MG/DL (0.70-1.30); GLOMERULAR FILTRATION RATE > 60.0 (>60); GLUCOSE, FASTING 71 MG/DL (60-100); LITHIUM LEVEL 0.42 MMOL/L (1.0-1.20); POTASSIUM SERUM 4.7 MMOL/L (3.5-5.1); SODIUM LEVEL 140 MMOL/L (136-145); TOTAL PROTEIN 7.2 G/DL (5.7-8.2)
[2023-12-18 15:58] LABS: THYROID STIMULATING HORMONE 0.727 uIU/ML (0.55-4.78); VITAMIN B12 LEVEL 726 PG/ML (211-911)
== END ==
LOC: M PLALAB 11:36
PROVIDERS: ATTEND Family Medicine
DX: R53.83 Other fatigue (principal)

== ENCOUNTER → 2024-03-13 | Outpatient (CLI) | payer OTHER, MEDICAID | LOC: M LAB 11:35 | PROVIDERS: ATTEND Registered Nurse | DX: F31.73 Bipolar disorder, in partial remission, most recent episode manic (principal) ==

== ENCOUNTER → 2024-06-10 | Outpatient (CLI) | payer OTHER, MEDICAID | LOC: M LAB 09:42 | PROVIDERS: ATTEND Registered Nurse | DX: F31.73 Bipolar disorder, in partial remission, most recent episode manic (principal) ==

== ENCOUNTER → 2024-08-12 | Outpatient (CLI) | payer MEDICAID, OTHER ==
[2024-08-12 15:09] LABS: FREE T4 1.27 NG/DL (0.89-1.76); LITHIUM LEVEL 0.24 MMOL/L (1.0-1.20); THYROXINE (T4) 7.8 UG/DL (4.5-10.9)
[2024-08-12 15:10] LABS: THYROID STIMULATING HORMONE 0.641 uIU/ML (0.55-4.78)
[2024-08-12 15:12] LABS: FREE T3 3.9 PG/ML (2.3-4.2)
== END ==
LOC: M PLALAB 11:54
PROVIDERS: ATTEND Registered Nurse
DX: F31.73 Bipolar disorder, in partial remission, most recent episode manic (principal)

== ENCOUNTER 2024-09-02 17:35 | Inpatient (IN) | payer MEDICAID ==
[~2024-09-02] VITALS: Ht 177.8 cm; Wt 83.0 kg
[2024-09-02] MEDS ORDERED: LITH300C PO (17:51)
[2024-09-02 18:51] LABS: HEMATOCRIT 43.7 % (42.0-52.0); HEMOGLOBIN 14.7 g/dl (13.5-17.5); MEAN CORPUSCULAR HEMOGLOBIN 28.6 pg (27.0-33.0); MEAN CORPUSCULAR HGB CONC 33.6 g/dl (32.0-36.5); PLATELET COUNT, AUTOMATED 282 10^3/uL (150-450); RED BLOOD COUNT 5.14 10^6/uL (4.30-6.10); WHITE BLOOD COUNT 8.8 10^3/uL (4.0-10.0)
[2024-09-02 19:05] LABS: AMPHETAMINES LEVEL URINE NEGATIVE (NEGATIVE)
[2024-09-02 19:06] LABS: BARBITURATES URINE NEGATIVE (NEGATIVE); BENZODIAZEPINES URINE NEGATIVE (NEGATIVE); CANNABINOIDS URINE NEGATIVE (NEGATIVE); COCAINE METABOLITE URINE NEGATIVE (NEGATIVE); METHADONE URINE NEGATIVE (NEGATIVE); OPIATES URINE NEGATIVE (NEGATIVE); PHENCYCLIDINE URINE NEGATIVE (NEGATIVE)
[2024-09-02] MEDS ORDERED: LITH150C PO ×2 (19:06)
[2024-09-02 19:08] LABS: ETHYL ALCOHOL (ETHANOL) < 0.003 % (0.000-0.010)
[2024-09-02 19:09] LABS: SALICYLATE LEVEL < 3.0 MG/DL (<30)
[2024-09-02 19:10] LABS: ALBUMIN 4.5 G/DL (3.2-5.2); ALKALINE PHOSPHATASE 106 U/L (40-129); ALT/SGPT 25 U/L (7.0-40); AST/SGOT 16 U/L (<34); BILIRUBIN,DIRECT 0.5 MG/DL (<0.4); BILIRUBIN,TOTAL 1.5 MG/DL (0.3-1.2); BLOOD UREA NITROGEN 13 MG/DL (9-23); CALCIUM LEVEL 10.2 MG/DL (8.5-10.1); CARBON DIOXIDE LEVEL 27 MMOL/L (20-31); CHLORIDE LEVEL 106 MMOL/L (98-107); CREATININE FOR GFR 0.85 MG/DL (0.70-1.30); GLOMERULAR FILTRATION RATE > 60.0 (>60); GLUCOSE, FASTING 82 MG/DL (60-100); POTASSIUM SERUM 3.9 MMOL/L (3.5-5.1); SODIUM LEVEL 144 MMOL/L (136-145); TOTAL PROTEIN 7.7 G/DL (5.7-8.2)
[2024-09-02] MEDS ORDERED: HOME MED LIST COMPLETE! XX SCH (19:10)
[2024-09-02 19:12] LABS: THYROID STIMULATING HORMONE 1.417 uIU/ML (0.55-4.78)
[2024-09-03] MEDS ORDERED: IBUPROFEN 400MG TAB PO PRN (00:05)
[2024-09-03] MEDS ORDERED: MOM 30ML SUSPENSION UDC PO PRN (00:05)
[2024-09-03] MEDS ORDERED: diphenhydrAMINE 25MG CAP PO PRN (00:05)
[2024-09-03] MEDS: traZODone 50 MG TAB PO PRN (01:01)
[2024-09-03 01:20] VITALS: BP 133/82; TEMP 97.8; O2SAT 100
[2024-09-03] MEDS: OLANZapine ORAL DISINTEGRATING TAB 5MG PO PRN (01:46)
[2024-09-03 02:01] VITALS: BP 139/79
[2024-09-03] MEDS: NICOTINE 14 MG/24 HR TRANSDERMAL TD SCH (08:56)
[2024-09-03] MEDS: LITHIUM CARBONATE 150 MG CAP PO SCH (20:16)
[2024-09-04 06:32] VITALS: BP 136/87; TEMP 97; O2SAT 99
[2024-09-04] MEDS: LITHIUM CARBONATE 150 MG CAP PO SCH (09:05)
[2024-09-04 11:07] VITALS: BP 138/82; TEMP 98; O2SAT 99
[2024-09-04 16:01] VITALS: BP 125/68; TEMP 97.4; O2SAT 99
[2024-09-04 18:03] LABS: APPEARANCE, URINE CLEAR (CLEAR); BACTERIA, URINE AUTO NEGATIVE (NEGATIVE); BILIRUBIN, URINE AUTO NEGATIVE (NEGATIVE); BLOOD, URINE BLOOD NEGATIVE (NEGATIVE); COLOR, URINE YELLOW (YELLOW); GLUCOSE, URINE (UA) AUTO NEGATIVE (NEGATIVE); KETONE, URINE AUTO NEGATIVE (NEGATIVE); LEUKOCYTE ESTERASE, URINE AUTO NEGATIVE (NEGATIVE); MUCUS, URINE SMALL (NEGATIVE); NITRITE, URINE AUTO NEGATIVE (NEGATIVE); PROTEIN, URINE AUTO NEGATIVE (NEGATIVE); RBC, URINE AUTO 0 /HPF (0-3); SPECIFIC GRAVITY URINE AUTO 1.014 (1.002-1.035); SQUAMOUS EPITHELIAL CELL UR AU 0 /HPF (0-6); UROBILINOGEN, URINE AUTO 0.2 mg/dL (0.0-2.0); WBC, URINE AUTO 1 /HPF (0-3)
[2024-09-04] MEDS: OLANZapine 2.5MG TABLET PO SCH (20:26)
[2024-09-05 06:41] VITALS: BP 125/76; TEMP 97.9; O2SAT 97
[2024-09-05] MEDS: LITHIUM CARBONATE 300 MG CAP PO SCH (09:37)
[2024-09-05 14:48] VITALS: BP 117/78; TEMP 98.9; O2SAT 97
[2024-09-06 06:32] VITALS: BP 129/72; TEMP 98.5; O2SAT 97
[2024-09-06 16:21] VITALS: BP 136/84; TEMP 98.1; O2SAT 99
[2024-09-06] MEDS: POLYVINYL ALCOHOL OPHTH SOLN 15ML (LIQUITEARS) OU PRN (20:50)
[2024-09-07 07:03] VITALS: BP 125/76; TEMP 97.8; O2SAT 99
[2024-09-07 14:56] VITALS: BP 128/77; TEMP 98.7; O2SAT 98
[2024-09-08 06:30] VITALS: BP 127/65; TEMP 97.8; O2SAT 98
[2024-09-08 15:51] VITALS: BP 112/73; TEMP 97.4; O2SAT 98
[2024-09-08] MEDS: OLANZapine 10 MG TAB PO SCH (20:13)
[2024-09-09] MEDS: MAALOX 30 ML SUSP *UDC PO PRN (01:49)
[2024-09-09 02:27] VITALS: BP 112/70; TEMP 97.5; O2SAT 98
[2024-09-09] MEDS: ONDANSETRON 4MG ORAL DISINTEGRATING TAB SL PRN ×2 (02:28→09:03)
[2024-09-09 06:48] VITALS: BP 110/55; TEMP 99.5; O2SAT 100
[2024-09-09 18:21] VITALS: BP 119/63; TEMP 98.7; O2SAT 97
[2024-09-09 18:52] LABS: HEMATOCRIT 40.3 % (42.0-52.0); HEMOGLOBIN 13.6 g/dl (13.5-17.5); MEAN CORPUSCULAR HEMOGLOBIN 28.9 pg (27.0-33.0); MEAN CORPUSCULAR HGB CONC 33.7 g/dl (32.0-36.5); MEAN CORPUSCULAR VOLUME 85.6 fl (80.0-96.0); PLATELET COUNT, AUTOMATED 215 10^3/uL (150-450); RED BLOOD COUNT 4.71 10^6/uL (4.30-6.10); WHITE BLOOD COUNT 11.2 10^3/uL (4.0-10.0)
[2024-09-09 19:21] LABS: ALBUMIN 3.4 G/DL (3.2-5.2); ALKALINE PHOSPHATASE 83 U/L (40-129); ALT/SGPT 27 U/L (7.0-40); AST/SGOT 21 U/L (<34); BILIRUBIN,TOTAL 1.5 MG/DL (0.3-1.2); BLOOD UREA NITROGEN 13 MG/DL (9-23); CALCIUM LEVEL 8.3 MG/DL (8.5-10.1); CARBON DIOXIDE LEVEL 28 MMOL/L (20-31); CHLORIDE LEVEL 107 MMOL/L (98-107); CREATININE FOR GFR 0.82 MG/DL (0.70-1.30); GLOMERULAR FILTRATION RATE > 60.0 (>60); GLUCOSE, FASTING 109 MG/DL (60-100); POTASSIUM SERUM 3.5 MMOL/L (3.5-5.1); SODIUM LEVEL 141 MMOL/L (136-145); TOTAL PROTEIN 6.1 G/DL (5.7-8.2)
[2024-09-10 06:17] VITALS: BP 123/73; TEMP 98.2; O2SAT 97
[2024-09-10] MEDS: LITHIUM CARBONATE 150 MG CAP PO ONE (10:12)
[2024-09-10] MEDS: ACETAMINOPHEN 325 MG TAB PO PRN (16:28)
[2024-09-10 16:43] VITALS: BP 140/73; TEMP 97.4; O2SAT 99
[2024-09-10] MEDS: LITHIUM CARBONATE 150 MG CAP PO SCH (20:05)
[2024-09-10] MEDS ORDERED: LITHIUM CARBONATE 150 MG CAP PO SCH (21:00)
[2024-09-11 06:57] VITALS: BP 147/74; TEMP 99.2; O2SAT 98
[2024-09-11] MEDS ORDERED: OLAN1TAB20 PO (10:28)
[2024-09-11] MEDS ORDERED: LITH150C PO (10:28)
== END 2024-09-11 11:31 | disposition home or self-care (01) | DRG 750 ==
LOC: M ED 17:35 → M ED INP 09-03 00:03 → M PSY 09-03 00:43
PROVIDERS: ADMIT Psychiatry & Neurology Neurology; ATTEND Psychiatry & Neurology Psychiatry
DX: F25.0 Schizoaffective disorder, bipolar type (principal); Z88.0 Allergy status to penicillin; Z79.899 Other long term (current) drug therapy; Z81.8 Family history of other mental and behavioral disorders; Z56.0 Unemployment, unspecified

== ENCOUNTER → 2024-09-30 | Outpatient (CLI) | payer MEDICAID ==
[~2024-09-30] MED LIST changes: +LITH150C PO; +LITH300C PO; +OLAN1TAB20 PO
== END ==
LOC: M LAB 10:03
PROVIDERS: ATTEND Registered Nurse
DX: F31.73 Bipolar disorder, in partial remission, most recent episode manic (principal)

== ENCOUNTER → 2025-08-05 | Outpatient (CLI) | payer MEDICAID ==
[~2025-08-05] MED LIST changes: +LAMO-18 PO; -LAMO25TA4 PO
[2025-08-05 11:44] LABS: BASO # 0.1 10^3/uL (0.0-0.2); BASO % 0.8 % (0.0-1.0); EOS # 0.2 10^3/uL (0.0-0.5); EOS % 2.6 % (0.0-3.0); LYMPH # 2.4 10^3/uL (1.5-5.0); LYMPH % 30.5 % (24.0-44.0); MONO # 0.6 10^3/uL (0.0-0.8); MONO % 7.8 % (2.0-8.0); NEUTROPHILS # 4.5 10^3/uL (1.5-8.5); NEUTROPHILS % 57.8 % (36.0-66.0); PLATELET COUNT, AUTOMATED 300 10^3/uL (150-450)
[2025-08-05 12:19] LABS: ALT/SGPT 48 U/L (7.0-40); AST/SGOT 29 U/L (<34); CALCIUM LEVEL 9.6 MG/DL (8.5-10.1); CARBON DIOXIDE LEVEL 26 MMOL/L (20-31); CHLORIDE LEVEL 108 MMOL/L (98-107); CHOLESTEROL LEVEL 177 MG/DL (<200); CHOLESTEROL RISK RATIO 4.55 (<5); CREATININE FOR GFR 0.98 MG/DL (0.70-1.30); GLOMERULAR FILTRATION RATE > 90.0 (>60); LDL CHOLESTEROL 116.1 MG/DL (<100); NON-HDL-C 138.1 MG/DL; POTASSIUM SERUM 4.6 MMOL/L (3.5-5.1); SODIUM LEVEL 142 MMOL/L (136-145); TRIGLYCERIDES LEVEL 110 MG/DL (<150)
== END ==
LOC: M LAB 10:45
PROVIDERS: ATTEND Family Medicine
DX: Z00.00 Encounter for general adult medical examination without abnormal findings (principal)